=== PATIENT | male | born 1985 | race Caucasian/White ===

== ENCOUNTER 2019-07-25 18:18 | Emergency (ER) | payer BC, OTHER ==
[~2019-07-25] VITALS: Ht 178 cm; Wt 94.0 kg
[2019-07-25] MEDS ORDERED: ceFAZolin 2 GM IV Premixed 50 ML IV STA (18:30)
[2019-07-25] MEDS ORDERED: fentaNYL INJECTION 100 MCG/2 ML AMP IVP STA (18:30)
[2019-07-25] MEDS ORDERED: TETANUS,DIPTH,PERTUSS P/F (BOOSTRIX) 0.5 ML VIAL IM ONE (18:30)
--- NOTE | 2019-07-25 18:34 | ED Upper Extremity ---
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 Ywa BILLS (KACIE WRIGHT DO) Allergies and Home Medications Allergies Coded Allergies: No Known Drug Allergies (Unverified , 07/25/19) Home Medications Cephalexin 500 Mg Capsule, 500 MG PO QID Prescribed by: KACIE WRIGHT on 07/25/191905 Hydrocodone/Acetaminophen 1 Each Tablet, 1 EACH PO Q4-6 HOURS PRN for PAIN Prescribed by: KACIE WRIGHT on 07/25/191905 Patient Home Medication List Home Medication List Reviewed: Yes (KACIE WRIGHT DO) Review of Systems Constitutional: no symptoms reported Musculoskeletal: see HPI Skin: see HPI Psychiatric/Neurological: Denies Numbness, Denies Paresthesia (KACIE WRIGHT DO) Past Hfpinoh-Ceguyq-Hmqvfh Hx Past Med/Social Hx: Reviewed and Corrections made (KACIE WRIGHT DO) Patient Social History Alcohol Use: Regular Use Recreational Drug Use: No Smoking Status: Never a Smoker Type Used: Smokeless Tobacco Recent Foreign Travel: No Contact w/Someone Who Travel: No (KACIE WRIGHT DO) Immunizations Up To Date Tetanus Booster (TDap): Unknown (KACIE WRIGHT DO) Past Medical History Surgeries: Yes (RIGHT SHOUJLDER SURGERY) Orthopedic Respiratory: No Cardiac: Yes Hypertension Neurological: No Genitourinary: No Gastrointestinal: No Musculoskeletal: Yes (RIGHT SHOULDER SURGERY) Endocrine: No HEENT: No Cancer: No Psychosocial: No Integumentary: No Blood Disorders: No (KACIE WRIGHT DO) Physical Exam Vital Signs Vital Signs - First Documented 07/25/19 18:32 Temp 36.7 Pulse 89 Resp 18 B/P (MAP) 114/67 (83) Pulse Ox 98 O2 Delivery Room Air (GERDA CARABALLO) Vital Signs Capillary Refill : (ADRIANAKACIE John DIAL) Height, Weight, BMI Height: '" Weight: lbs. oz. kg; BMI Method: General Appearance: WD/WN, no apparent distress Wrist: Yes normal inspection Hand: Right (INDEX FINGER WITH LACERATION THROUGH DORSAL ASPECT OF PIP, WITH NEAR-AMPUTATION, ENTIRE PIP JOINT IS EXPOSED AND DIS-ARTICULATED, COMPLETE EXTENSOR TENDON INJURY, WITH FINGER IN FLEXION AT PIP JOINT. DISTAL SENSATION IS INTACT WITH GOOD CAPILLARY REFILL. 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 ) (KACIE WRIGHT DO) Procedures/Interventions REPAIR DONE BY SIM CARABALLO (ADRIANA,KACIE John DIAL) Wound Location: Upper Extremities (Index finger, laceration and partial amputation at PIP joint. ) Wound Length (cm): 4 Wound's Depth, Shape: into muscle, irregular, bone, tendon Wound Explored: clean Irrigated w/ Saline (ccs): 1500 Betadine Prep?: Yes Anesthesia: 1% Lidocaine Volume Anesthetic (ccs): 10 Wound Debrided: minimal Suture: Ethlion Suture Size: 4-0 Number of Sutures: 4 Sterile Dressing Applied?: Yes Progress Neurovasc status intact Right Index finger. Once verbal consent was given, using sterile technique a digital block to right index finger with 10 ml of 1% lidocaine. Would copiously irrigated. PIP joint reduced and finger in good alignment. Wound loosely closed with 4 simple sutures. Bulky sterile dressing and aluminum splint used to keep finger in anatomical alignment. Patient tolerated procedure well. Post procedure, brisk cap refill, neurovasc status intact. (GERDA CARABALLO) Progress/Results/Core Measures Results/Orders Lab Results Laboratory Tests Test 07/25/19 18:50 Range/Units White Blood Count 6.4 4.3-11.0 10^3/uL Red Blood Count 4.75 4.35-5.85 10^6/uL Hemoglobin 14.7 13.3-17.7 G/DL Hematocrit 42 40-54 % Mean Corpuscular Volume 87 80-99 FL Mean Corpuscular Hemoglobin 31 25-34 PG Mean Corpuscular Hemoglobin Concent 35 32-36 G/DL Red Cell Distribution Width 12.1 10.0-14.5 % Platelet Count 285 130-400 10^3/uL Mean Platelet Volume 9.4 7.4-10.4 FL Neutrophils (%) (Auto) 45 42-75 % Lymphocytes (%) (Auto) 42 12-44 % Monocytes (%) (Auto) 8 0-12 % Eosinophils (%) (Auto) 4 0-10 % Basophils (%) (Auto) 0 0-10 % Neutrophils # (Auto) 2.9 1.8-7.8 X 10^3 Lymphocytes # (Auto) 2.7 1.0-4.0 X 10^3 Monocytes # (Auto) 0.5 0.0-1.0 X 10^3 Eosinophils # (Auto) 0.3 0.0-0.3 10^3/uL Basophils # (Auto) 0.0 0.0-0.1 10^3/uL Prothrombin Time 14.3 12.2-14.7 SEC INR Comment 1.1 0.8-1.4 Activated Partial Thromboplast Time 26 24-35 SEC Sodium Level 139 135-145 MMOL/L Potassium Level 3.4 L 3.6-5.0 MMOL/L Chloride Level 104 98-107 MMOL/L Carbon Dioxide Level 23 21-32 MMOL/L Anion Gap 12 5-14 MMOL/L Blood Urea Nitrogen 15 7-18 MG/DL Creatinine 0.80 0.60-1.30 MG/DL Estimat Glomerular Filtration Rate > 60 BUN/Creatinine Ratio 19 Glucose Level 101 70-105 MG/DL Calcium Level 9.5 8.5-10.1 MG/DL Corrected Calcium 8.5-10.1 MG/DL Total Bilirubin 0.5 0.1-1.0 MG/DL Aspartate Amino Transf (AST/SGOT) 23 5-34 U/L Alanine Aminotransferase (ALT/SGPT) 26 0-55 U/L Alkaline Phosphatase 60 40-136 U/L Total Protein 7.3 6.4-8.2 GM/DL Albumin 4.7 H 3.2-4.5 GM/DL Serum Alcohol 11 H <10 MG/DL (GERDA CARABALLO) My Orders Orders - ILYA,GERDA MATERIAL SPECIALIST Lidocaine 1% Inj 20 Ml (Xylocaine 1% Inj (07/25/19 19:00) (ILYAGERDA) Medications Given in ED Current Medications Medications Dose Ordered Sig/Dieter Route Start Time Stop Time Status Last Admin Dose Admin Acetaminophen/ Hydrocodone Bitart 1 ea Q4H PRN PO 07/25/19 19:15 07/25/19 19:59 DC 07/25/19 19:47 1 EA Diphtheria/ Tetanus/Acell Pertussis 0.5 ml ONCE ONCE IM 07/25/19 18:30 07/25/19 18:34 DC 07/25/19 18:45 0.5 ML Lidocaine HCl 20 ml ONCE ONCE INJ 07/25/19 19:00 07/25/19 19:01 DC 07/25/19 19:36 4 ML (GERDA CARABALLO) Vital Signs/I&O 07/25/19 07/25/19 07/25/19 18:32 18:45 19:59 Temp 36.7 36.7 36.7 Pulse 89 87 Resp 18 18 B/P (MAP) 114/67 (83) 126/72 (83) Pulse Ox 98 98 O2 Delivery Room Air Room Air (ILYAGERDA) Diagnostic Imaging Comments XRAYS RIGHT INDEX FINGER--PER RADIOLOGIST REPORT AT 1900 3 views of the right hand were obtained. There is a table saw injury involving the 2nd digit. This appears to be located at the level of the PIP joint of the 2nd finger. There appears to be a bony defect involving the distal aspect of the proximal phalanx of the 2nd finger. There is acute ulnar angulation of the middle and distal phalanges in relation to the proximal phalanx with deep soft tissue injury at this level. No definite fracture of the middle or distal phalanx of the 2nd finger is seen. Metacarpals are intact. Carpus is unremarkable. IMPRESSION: Table saw injury to the 2nd digit at the level of the PIP joint with a bony defect and fractures of the distal aspect of the proximal phalanx, as described. Reviewed: Reviewed by Me (KACIE WRIGHT DO) Departure Communication (Admissions) 1829--SPOKE WITH DR. LEZAMA, ADVISES TRANSFER TO HAND SURGEON 1831--CALLED [facility], HAVE HAND SURGEON [employer]. WILL CALL THEM BACK 1837--CALLED [facility] [address] HAND SURGEON. 1844--SPOKE WITH DR. MITCHELL, ADVISES REDUCTION OF JOINT AND SKIN CLOSURE AND SPLINT. SEND PT HOME WITH RX FOR KEFLEX AND PAIN MEDICATION AND HAVE PT FOLLOW UP IN OFFICE TOMORROW--[phone] 1914--AT PT'S REQUEST, CALLED [facility] IN [place], SPOKE WITH ER--THEY DO NOT HAVE A HAND SURGEON ON STAFF. 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 Referrals: ANNAMARIA LUO MD (PCP) Primary Care Physician KEITH MCKINNEY (Family) Primary Care Physician Patient Instructions: Amputation of the Finger or Fingertip (DC), Diphtheria and Tetanus Toxoids, and Acellular Pertussis Vaccine, SPLINT CARE, Tendon Laceration (DC) Add. Discharge Instructions: LEAVE DRESSING AND SPLINT IN PLACE AT ALL TIMES KEEP AREA CLEAN AND DRY ELEVATE HAND MUCH POSSIBLE IF WOUND BLEEDS THROUGH DRESSING, APPLY PRESSURE, ICE AT 20 MINUTE INTERVALS AND ELEVATE, AND APPLY ADDITIONAL DRESSING CALL DR. MITCHELL'S OFFICE IN THE MORNING TO ARRANGE FOLLOW UP APPOINTMENT--[phone] TAKE ANTIBIOTICS PRESCRIBED TAKE PAIN MEDICATION PRESCRIBED NEEDED FOR PAIN NOTHING TO EAT OR DRINK AFTER MIDNIGHT TONIGHT All discharge instructions reviewed with patient and/or family. Voiced understanding. Scripts Hydrocodone/Acetaminophen (Hydrocodone-Acetamin 5-325 mg) 1 Each Tablet 1 EACH PO Q4-6 HOURS PRN for PAIN, #20 TAB Prov: KACIE WRIGHT DO 07/25/19 Cephalexin (Keflex) 500 Mg Capsule 500 MG PO QID, #40 CAP Prov: KACIE WRIGHT DO 07/25/19 KACIE WRIGHT DO July 25, 2019 18:34 GERDA CARABALLO July 25, 2019 19:57
--- NOTE | 2019-07-25 18:54 | Diagnostic Imaging Report ---
INDICATION: Table saw injury to the right hand. Time of exam: 6:41 PM 3 views of the right hand were obtained. There is a table saw injury involving the 2nd digit. This appears to be located at the level of the PIP joint of the 2nd finger. There appears to be a bony defect involving the distal aspect of the proximal phalanx of the 2nd finger. There is acute ulnar angulation of the middle and distal phalanges in relation to the proximal phalanx with deep soft tissue injury at this level. No definite fracture of the middle or distal phalanx of the 2nd finger is seen. Metacarpals are intact. Carpus is unremarkable. IMPRESSION: Table saw injury to the 2nd digit at the level of the PIP joint with a bony defect and fractures of the distal aspect of the proximal phalanx, as described. Dictated by: Dictated on workstation # [id number]
[2019-07-25] MEDS ORDERED: LIDOCAINE 1% INJ 20 ML 20 ML VIAL INJ ONE (19:00)
[2019-07-25 19:04] LABS: BASOPHILS % (AUTO) 0 % (0-10); EOSINOPHILS # (AUTO) 0.3 10^3/uL (0.0-0.3); EOSINOPHILS % (AUTO) 4 % (0-10); HEMATOCRIT 42 % (40-54); HEMOGLOBIN 14.7 G/DL (13.3-17.7); LYMPHOCYTES # (AUTO) 2.7 X 10^3 (1.0-4.0); LYMPHOCYTES % (AUTO) 42 % (12-44); MEAN CORPUSCULAR HEMOGLOBIN 31 PG (25-34); MEAN CORPUSCULAR HGB CONC 35 G/DL (32-36); MEAN CORPUSCULAR VOLUME 87 FL (80-99); MEAN PLATELET VOLUME 9.4 FL (7.4-10.4); MONOCYTES # (AUTO) 0.5 X 10^3 (0.0-1.0); MONOCYTES % (AUTO) 8 % (0-12); NEUTROPHILS # (AUTO) 2.9 X 10^3 (1.8-7.8); NEUTROPHILS % (AUTO) 45 % (42-75); PLATELET COUNT 285 10^3/uL (130-400); RED CELL DISTRIBUTION WIDTH 12.1 % (10.0-14.5); WHITE BLOOD COUNT 6.4 10^3/uL (4.3-11.0)
[2019-07-25] MEDS ORDERED: RX-CEPHALEXIN (KEFLEX) 250 MG CAP PPK#4 PO STA (19:06)
[2019-07-25] MEDS ORDERED: HYDR-83 PO (19:06)
[2019-07-25] MEDS ORDERED: CEPH-507 PO (19:06)
[2019-07-25 19:15] LABS: ALBUMIN 4.7 GM/DL (3.2-4.5); CHLORIDE 104 MMOL/L (98-107); POTASSIUM 3.4 MMOL/L (3.6-5.0); SODIUM 139 MMOL/L (135-145)
[2019-07-25] MEDS ORDERED: RX-HYDROCODONE/APAP 5/325 MG #4 TAB PK PO PRN (19:15)
[2019-07-25 19:16] LABS: CALCIUM 9.5 MG/DL (8.5-10.1)
[2019-07-25 19:17] LABS: GLUCOSE 101 MG/DL (70-105); TOTAL PROTEIN 7.3 GM/DL (6.4-8.2)
[2019-07-25 19:18] LABS: CARBON DIOXIDE 23 MMOL/L (21-32)
[2019-07-25 19:19] LABS: BILIRUBIN,TOTAL 0.5 MG/DL (0.1-1.0)
[2019-07-25 19:20] LABS: INR 1.1 (0.8-1.4); PROTHROMBIN TIME PATIENT 14.3 SEC (12.2-14.7)
[2019-07-25 19:21] LABS: ALKALINE PHOSPHATASE 60 U/L (40-136); GFR ESTIMATED > 60
[2019-07-25 19:22] LABS: BUN/CREATININE RATIO 19
[2019-07-25 19:24] LABS: ALANINE AMINOTRANSFERASE 26 U/L (0-55)
[2019-07-25 19:59] VITALS: BP 126/72
--- OUTSIDE RECORDS SUMMARY | 2019-07-25 20:38 | XMS REPORT | CCD ---
Author Author Simeon Ventura Organization Nevin Wright MD, [facility] Address [address] [place] [address] Phone Care Team Providers Care Elevator Examiner And Adjuster Name Role Phone PP Unavailable CCM Unavailable Summary Purpose Interface Exchange Insurance Providers Payer name Policy type / Coverage type Covered libertarian ID Effective Begin Date Effective End Date [id number] Un known Family history Father Diagnosis Age At Onset Asthma Unknown Hypertension Unknown Runs in the family Diagnosis Age At Onset Thyroid Unknown Skin cancer Unknown Cancer Unknown Hypertension Unknown Arthritis Unknown Stroke Unknown Coronary Artery Disease Unknown Mother Diagnosis Age At Onset Thyroid Unknown Social History Social History Element Codes Description Effective Dates Number of children Unknown 1 Call - son 09/28/2016 Marital status Unknown M nae Mcdonald 06/04/2016 Living arrangements Unknown House 06/04/2016 Education level Unknown College Graduate 06/04/[address]: 006834147 Never smoker Quit chewing 6 months ago 06/04/2016 Allergies, Adverse Reactions, Alerts Substance Reaction Codes Entered Date Inactivated Date Status * NO KNOWN FOOD IJEOMA RGIES Unknown 06/04/2016 No Inactive Date Active * NO KNOWN DRUG IJEOMA RGIES Unknown 06/04/2016 No Inactive Date Active Past Medical History Illness Codes Condition Status Onset Date Resolved Date Impacted cerumen, bi lateral ICD-9: 380.4 ICD-10: H61.23 Active 08/11/2018 Unknown Essential (primary) hypertension ICD-9: 401.9 ICD-10: I10 Active 09/28/2016 Unknown Encounter for genera l adult medical examination with abnormal findings ICD-9: V70.0 ICD-10: Z00.01 Active 12/20/2017 Unknown Hypertension Unknown Active 09/28/2016 Unknow n Elevated blood-press ure reading, without diagnosis of hypertension ICD-9: 796.2 ICD-10: R03.0 Active 06/04/2016 Unknown Exercise induced bro nchospasm ICD-9: 493.81 ICD-10: J45.990 Active 06/04/2016 Unknown Problems Condition Codes Effectiv e Dates Condition Status Impacted cerumen, bi lateral ICD-9: 380.4 ICD-10: H61.23 08/11/2018 Active Essential (primary) hypertension ICD-9: 401.9 ICD-10: I10 09/28/2016 Active Encounter for genera l adult medical examination with abnormal findings ICD-9: V70.0 ICD-10: Z00.01 12/20/2017 Active Hypertension Unknown 09/28/2016 Active Elevated blood-press ure reading, without diagnosis of hypertension ICD-9: 796.2 ICD-10: R03.0 06/04/2016 Active Exercise induced bro nchospasm ICD-9: 493.81 ICD-10: J45.990 06/04/2016 Active Medications Medication Codes Instruc tions Start Date Stop Date Sta tus Fill Instructions lisinopril 20 mg tablet RxNorm: 326491 1 Tablet(s) PO daily 08/11/2018 08/05/2019 Active Lexapro 10 mg tablet RxNorm: 285745 1 Tablet(s) PO daily 05/04/2018 04/28/2019 Active Lexapro 10 mg tablet RxNorm: 649326 1 Tablet(s) PO daily 05/04/2018 06/02/2018 Inactive Lexapro 5 mg tablet RxNorm: 678383 1 Tablet(s) PO QPM 01/10/2018 07/08/2018 Inactive Lexapro 5 mg tablet RxNorm: 251554 1 Tablet(s) PO QPM 12/20/2017 12/19/2017 Inactive lisinopril 10 mg tablet RxNorm: 815370 1 Tablet(s) PO daily 12/20/2017 08/10/2018 Inactive Lexapro 5 mg tablet RxNorm: 654674 1 Tablet(s) PO QPM 12/20/2017 01/09/2018 Inactive lisinopril 5 mg tablet RxNorm: 383880 1 Tablet(s) PO daily 09/27/2017 12/19/2017 Inactive lisinopril 5 mg tablet RxNorm: 744202 1 Tablet(s) PO daily 01/13/2017 09/26/2017 Inactive lisinopril 5 mg tablet RxNorm: 314722 1 Tablet(s) PO daily 12/29/2016 01/12/2017 Inactive lisinopril 5 mg tablet RxNorm: 772226 1 Tablet(s) PO daily 10/27/2016 12/28/2016 Inactive lisinopril 5 mg tablet RxNorm: 118569 1 Tablet(s) PO daily 09/28/2016 10/26/2016 Inactive ProAir HFA 90 mcg/ac tuation aerosol inhaler RxNorm: 204188 1-2 Puff(s) INH Q4 VT N 06/04/2016 07/03/2016 In active ProAir HFA 90 mcg/ac tuation aerosol inhaler RxNorm: 533328 1-2 Puff(s) INH Q4 VT N 06/04/2016 06/03/2016 In active Lexapro 10 mg tablet RxNorm: 045257 1 Tablet(s) PO daily No Start Date 05/03/2018 Inactive Medication Administered No Medication Administered data Immunizations No Immunization data Assessments Condition Codes Effectiv e Dates Impacted cerumen, bilateral ICD-10: H61.23 ICD-9: 380.4 08/18/2018 Essential (primary) hypertension ICD -10: I10 ICD-9: 401.9 08/11/2018 Encounter for general adult medical exam ination with abnormal findings ICD-10: Z00.01 ICD-9: V70.0 12/20/2017 Elevated blood-pressure reading, without diagnosis of hypertension ICD-10: R03.0 ICD-9: 796.2 08/27/2016 Exercise induced bronchospasm ICD-10 : J45.990 ICD-9: 493.81 06/04/2016 Reason For Visit Reason For Visit Effective Dates Notes earache 08/18/2018 hypertension 08/11/2018 hypertension 12/20/2017 hypertension 07/23/2017 hypertension 12/29/2016 hypertension 10/27/2016 hypertension 09/28/2016 hypertension 06/04/2016 when running Results Observation Observation Code Item Item Code Result Date Lipid Ord30 CHOL 165 mg/dL 12/20/2017 Lipid Ord30 HDL 59.0 mg/dl 12/20/2017 Lipid Ord30 TRIG 66 mg/dL 12/20/2017 Lipid Ord30 LDL 93 mg/dL 12/20/2017 Lipid Ord30 C/HDL 2.8 Ratio 12/20/2017 Cbc With Differential Ord2 WBC 4.58 K/ul 12/20/2017 Cbc With Differential Ord2 RBC 5.16 M/ul 12/20/2017 Cbc With Differential Ord2 HGB 16.0 g/dl 12/20/2017 Cbc With Differential Ord2 HCT 45.8 % 12/20/2017 Cbc With Differential Ord2 Neut% 51.8 % 12/20/2017 Cbc With Differential Ord2 MCV 88.8 fl 12/20/2017 Cbc With Differential Ord2 Lymph% 37.1 % 12/20/2017 Cbc With Differential Ord2 MCH 31.0 pg 12/20/2017 Cbc With Differential Ord2 [place]% 9.4 % 12/20/2017 Cbc With Differential Ord2 MCHC 34.9 pg 12/20/2017 Cbc With Differential Ord2 Eos% 1.5 % 12/20/2017 Cbc With Differential Ord2 PLT 280 K/ul 12/20/2017 Cbc With Differential Ord2 Baso% 0.2 % 12/20/2017 Cbc With Differential Ord2 RDW 13.3 % 12/20/2017 Cbc With Differential Ord2 Neut ABS# 2.37 K/ul 12/20/2017 Cbc With Differential Ord2 Lymph ABS# 1.70 K/ul 12/20/2017 Cbc With Differential Ord2 [place] ABS# 0.4 K/ul 12/20/2017 Cbc With Differential Ord2 Eos ABS# 0.1 K/ul 12/20/2017 Cbc With Differential Ord2 Baso ABS# 0.0 K/ul 12/20/2017 Comp Metabolic Nwh089 NA 139 mEq/L 12/20/2017 Comp Metabolic Dvz462 K 4.0 mEq/L 12/20/2017 Comp Metabolic Gcc338 CL 102 mEq/L 12/20/2017 Comp Metabolic Ecl931 CO2 26.0 mEq/L 12/20/2017 Comp Metabolic Jcs783 AN ION GAP 15 12/20/2017 Comp Metabolic Eyd577 GL UCOSE 97 mg/dL 12/20/2017 Comp Metabolic Noi324 Cr eat 0.8 mg/dL 12/20/2017 Comp Metabolic Jcg471 eG FR 122 ml/min/1.73m2 12/06 Comp Metabolic Ezh870 BUN 13 mg/dL 12/20/2017 Comp Metabolic Uyj435 B/ C Ratio 16.5 Ratio 12/20/2017 Comp Metabolic Tgs972 CA LCIUM 10.2 mg/dL 12/20/2017 Comp Metabolic Dsp440 AL K PHOS 63 U/L 12/20/2017 Comp Metabolic Wgb698 T(SGOT) 17 U/L 12/20/2017 Comp Metabolic Htp141 AL T(SGPT) 23 U/L 12/20/2017 Comp Metabolic Jhh302 BI LI T 0.6 mg/dL 12/20/2017 Comp Metabolic Tfm448 AL BUMIN 5.0 g/dL 12/20/2017 Comp Metabolic Gax853 TP RO 7.5 g/dL 12/20/2017 Comp Metabolic Rvi852 GL OB 2.5 g/dL 12/20/2017 Comp Metabolic Juc940 A/ G Ratio 2.0 Ratio 12/20/2017 Comp Metabolic Qpz132 Os mo 278 mOsmo 12/20/2017 Tsh Ord6 TSH (3rd IS) 1.52 uIU/mL 12/20/2017 Tsh Ord6 hTSH II 1.07 uIU/mL 06/05/2016 Comp Metabolic Cmq816 NA 139 mEq/L 06/05/2016 Comp Metabolic Hub040 K 4.1 mEq/L 06/05/2016 Comp Metabolic Wpu218 CL 103 mEq/L 06/05/2016 Comp Metabolic Pch063 CO2 26.0 mEq/L 06/05/2016 Comp Metabolic Exx965 AN ION GAP 14 06/05/2016 Comp Metabolic Czd766 GL UCOSE 88 mg/dL 06/05/2016 Comp Metabolic Fae126 Cr eat 0.8 mg/dL 06/05/2016 Comp Metabolic Mod096 eG FR 127 ml/min/1.73m2 05/08 Comp Metabolic Fhg233 BUN 14 mg/dL 06/05/2016 Comp Metabolic Zje468 B/ C Ratio 18.2 Ratio 06/05/2016 Comp Metabolic Fmq548 CA LCIUM 10.0 mg/dL 06/05/2016 Comp Metabolic Gjh246 AL K PHOS 64 U/L 06/05/2016 Comp Metabolic Bla840 T(SGOT) 20 U/L 06/05/2016 Comp Metabolic Fok498 AL T(SGPT) 29 U/L 06/05/2016 Comp Metabolic Ofu081 BI LI T 0.7 mg/dL 06/05/2016 Comp Metabolic Otg314 AL BUMIN 4.8 g/dL 06/05/2016 Comp Metabolic Rxt450 TP RO 7.3 g/dL 06/05/2016 Comp Metabolic Vwb886 GL OB 2.5 g/dL 06/05/2016 Comp Metabolic Kxf000 A/ G Ratio 1.9 Ratio 06/05/2016 Comp Metabolic Toy326 Os mo 277 mOsmo 06/05/2016 Cbc With Differential Ord2 WBC 6.43 K/ul 06/05/2016 Cbc With Differential Ord2 RBC 4.98 M/ul 06/05/2016 Cbc With Differential Ord2 HGB 15.7 g/dl 06/05/2016 Cbc With Differential Ord2 HCT 44.3 % 06/05/2016 Cbc With Differential Ord2 Neut% 63.3 % 06/05/2016 Cbc With Differential Ord2 MCV 89.0 fl 06/05/2016 Cbc With Differential Ord2 Lymph% 25.2 % 06/05/2016 Cbc With Differential Ord2 MCH 31.5 pg 06/05/2016 Cbc With Differential Ord2 [place]% 9.5 % 06/05/2016 Cbc With Differential Ord2 MCHC 35.4 pg 06/05/2016 Cbc With Differential Ord2 Eos% 1.7 % 06/05/2016 Cbc With Differential Ord2 PLT 296 K/ul 06/05/2016 Cbc With Differential Ord2 Baso% 0.3 % 06/05/2016 Cbc With Differential Ord2 RDW 12.7 % 06/05/2016 Cbc With Differential Ord2 Neut ABS# 4.07 K/ul 06/05/2016 Cbc With Differential Ord2 Lymph ABS# 1.62 K/ul 06/05/2016 Cbc With Differential Ord2 [place] ABS# 0.6 K/ul 06/05/2016 Cbc With Differential Ord2 Eos ABS# 0.1 K/ul 06/05/2016 Cbc With Differential Ord2 Baso ABS# 0.0 K/ul 06/05/2016 Lipid Ord30 CHOL 132 mg/dL 06/05/2016 Lipid Ord30 HDL 44.0 mg/dl 06/05/2016 Lipid Ord30 TRIG 52 mg/dL 06/05/2016 Lipid Ord30 LDL 78 mg/dL 06/05/2016 Lipid Ord30 C/HDL 3.0 Ratio 06/05/2016 Review of Systems System Result Effective Dates Constitutional No recent illness 08/11/2018 Constitutional No night sweats 08/11/2018 Constitutional No chills 08/11/2018 Constitutional No fatigue 08/11/2018 Constitutional No fever 08/11/2018 Constitutional No insomnia 08/11/2018 Constitutional No malaise 08/11/2018 Eyes No eye pain 019 Eyes No vision change Ears/Nose/Throat/Neck No dizziness 08/11/2018 Ears/Nose/Throat/Neck No headache 08/11/2018 Cardiovascular No chest pain/pressure 08/11/2018 Cardiovascular No dyspnea 08/11/2018 Cardiovascular No edema 08/11/2018 Cardiovascular No palpitations 08/11/2018 Respiratory No chest congestion 08/11/2018 Respiratory No chest tightness 08/11/2018 Respiratory No cigarette smoking 08/11/2018 Respiratory No cough 08/2018 Gastrointestinal No abdominal pain 08/11/2018 Gastrointestinal No nausea 08/11/2018 Gastrointestinal No vomiting 08/11/2018 Musculoskeletal No stiffness 08/11/2018 Musculoskeletal No swelling 08/11/2018 Musculoskeletal No arthralgia(s) 08/11/2018 Neurologic No alteration of consciousness 08/11/2018 Neurologic No memory loss 08/11/2018 Neurologic No mental status change 08/11/2018 Psychiatric anxiety 08/2018 Psychiatric No depression 08/11/2018 Constitutional No recent illness 12/20/2017 Constitutional No anorexia 12/20/2017 Constitutional No night sweats 12/20/2017 Constitutional No chills 12/20/2017 Constitutional No diaphoresis 12/20/2017 Constitutional No fatigue 12/20/2017 Constitutional No fever 12/20/2017 Constitutional No insomnia 12/20/2017 Constitutional No malaise 12/20/2017 Constitutional No weight loss 12/20/2017 Constitutional No weight gain 12/20/2017 Constitutional No obesity 12/20/2017 Eyes No eye pain 018 Eyes No vision change Ears/Nose/Throat/Neck No dizziness 12/20/2017 Ears/Nose/Throat/Neck No headache 12/20/2017 Cardiovascular No chest pain/pressure 12/20/2017 Cardiovascular No dyspnea 12/20/2017 Cardiovascular No edema 12/20/2017 Cardiovascular No palpitations 12/20/2017 Respiratory No chest congestion 12/20/2017 Respiratory No chest tightness 12/20/2017 Respiratory No cigarette smoking 12/20/2017 Respiratory No cough Gastrointestinal No abdominal pain 12/20/2017 Gastrointestinal No nausea 12/20/2017 Gastrointestinal No vomiting 12/20/2017 Genitourinary/Nephrology No anuria/oliguri a 12/20/2017 Genitourinary/Nephrology No dysuria 12/20/2017 Musculoskeletal No stiffness 12/20/2017 Musculoskeletal No swelling 12/20/2017 Musculoskeletal No arthralgia(s) 12/20/2017 Dermatologic No rash Dermatologic No sores Neurologic No alteration of consciousness 12/20/2017 Neurologic No memory loss 12/20/2017 Neurologic No mental status change 12/20/2017 Psychiatric anxiety 12/06 Psychiatric No depression 12/20/2017 Hematologic/Lymphatic No abnormal ec chymoses 12/20/2017 Hematologic/Lymphatic No abnormal bl eeding and bruising 12/20/2017 Endocrine No dry or coarse skin 12/20/2017 Constitutional No recent illness 07/23/2017 Constitutional No anorexia 07/23/2017 Constitutional No night sweats 07/23/2017 Constitutional No chills 07/23/2017 Constitutional No diaphoresis 07/23/2017 Constitutional No fatigue 07/23/2017 Constitutional No fever 07/23/2017 Constitutional No insomnia 07/23/2017 Constitutional No malaise 07/23/2017 Constitutional No weight loss 07/23/2017 Constitutional No weight gain 07/23/2017 Constitutional No obesity 07/23/2017 Eyes No eye pain 018 Eyes No vision change Ears/Nose/Throat/Neck No dizziness 07/23/2017 Ears/Nose/Throat/Neck No headache 07/23/2017 Cardiovascular No chest pain/pressure 07/23/2017 Cardiovascular No dyspnea 07/23/2017 Cardiovascular No edema 07/23/2017 Cardiovascular No palpitations 07/23/2017 Respiratory No chest congestion 07/23/2017 Respiratory No chest tightness 07/23/2017 Respiratory No cigarette smoking 07/23/2017 Respiratory No cough Gastrointestinal No abdominal pain 07/23/2017 Gastrointestinal No nausea 07/23/2017 Gastrointestinal No vomiting 07/23/2017 Genitourinary/Nephrology No anuria/oliguri a 07/23/2017 Genitourinary/Nephrology No dysuria 07/23/2017 Musculoskeletal No stiffness 07/23/2017 Musculoskeletal No swelling 07/23/2017 Musculoskeletal No arthralgia(s) 07/23/2017 Dermatologic No rash Dermatologic No sores Neurologic No alteration of consciousness 07/23/2017 Neurologic No memory loss 07/23/2017 Neurologic No mental status change 07/23/2017 Psychiatric anxiety 07/06 Psychiatric No depression 07/23/2017 Hematologic/Lymphatic No abnormal ec chymoses 07/23/2017 Hematologic/Lymphatic No abnormal bl eeding and bruising 07/23/2017 Constitutional No recent illness 12/29/2016 Constitutional No anorexia 12/29/2016 Constitutional No night sweats 12/29/2016 Constitutional No chills 12/29/2016 Constitutional No diaphoresis 12/29/2016 Constitutional No fatigue 12/29/2016 Constitutional No fever 12/29/2016 Constitutional No insomnia 12/29/2016 Constitutional No malaise 12/29/2016 Constitutional No weight loss 12/29/2016 Constitutional No weight gain 12/29/2016 Constitutional No obesity 12/29/2016 Eyes No eye pain 017 Eyes No vision change Ears/Nose/Throat/Neck No dizziness 12/29/2016 Ears/Nose/Throat/Neck No headache 12/29/2016 Cardiovascular No chest pain/pressure 12/29/2016 Cardiovascular No dyspnea 12/29/2016 Cardiovascular No edema 12/29/2016 Cardiovascular No palpitations 12/29/2016 Respiratory No chest congestion 12/29/2016 Respiratory No chest tightness 12/29/2016 Respiratory No cigarette smoking 12/29/2016 Respiratory No cough Gastrointestinal No abdominal pain 12/29/2016 Gastrointestinal No nausea 12/29/2016 Gastrointestinal No vomiting 12/29/2016 Genitourinary/Nephrology No anuria/oliguri a 12/29/2016 Genitourinary/Nephrology No dysuria 12/29/2016 Musculoskeletal No stiffness 12/29/2016 Musculoskeletal No swelling 12/29/2016 Musculoskeletal No arthralgia(s) 12/29/2016 Dermatologic No rash Dermatologic No sores Neurologic No alteration of consciousness 12/29/2016 Neurologic No memory loss 12/29/2016 Neurologic No mental status change 12/29/2016 Psychiatric anxiety 12/07 Psychiatric No depression 12/29/2016 Hematologic/Lymphatic No abnormal ec chymoses 12/29/2016 Hematologic/Lymphatic No abnormal bl eeding and bruising 12/29/2016 Constitutional No recent illness 10/27/2016 Constitutional No anorexia 10/27/2016 Constitutional No night sweats 10/27/2016 Constitutional No chills 10/27/2016 Constitutional No diaphoresis 10/27/2016 Constitutional No fatigue 10/27/2016 Constitutional No fever 10/27/2016 Constitutional No insomnia 10/27/2016 Constitutional No malaise 10/27/2016 Constitutional No weight loss 10/27/2016 Constitutional No weight gain 10/27/2016 Constitutional No obesity 10/27/2016 Eyes No eye pain 017 Eyes No vision change Ears/Nose/Throat/Neck No dizziness 10/27/2016 Ears/Nose/Throat/Neck No headache 10/27/2016 Cardiovascular No chest pain/pressure 10/27/2016 Cardiovascular No dyspnea 10/27/2016 Cardiovascular No edema 10/27/2016 Cardiovascular No palpitations 10/27/2016 Respiratory No chest congestion 10/27/2016 Respiratory No chest tightness 10/27/2016 Respiratory No cigarette smoking 10/27/2016 Respiratory No cough Gastrointestinal No abdominal pain 10/27/2016 Gastrointestinal No nausea 10/27/2016 Gastrointestinal No vomiting 10/27/2016 Genitourinary/Nephrology No anuria/oliguri a 10/27/2016 Genitourinary/Nephrology No dysuria 10/27/2016 Musculoskeletal No stiffness 10/27/2016 Musculoskeletal No swelling 10/27/2016 Musculoskeletal No arthralgia(s) 10/27/2016 Dermatologic No rash Dermatologic No sores Neurologic No alteration of consciousness 10/27/2016 Neurologic No memory loss 10/27/2016 Neurologic No mental status change 10/27/2016 Psychiatric No anxiety 0 10/27/2016 Psychiatric No depression 10/27/2016 Hematologic/Lymphatic No abnormal ec chymoses 10/27/2016 Hematologic/Lymphatic No abnormal bl eeding and bruising 10/27/2016 Constitutional No recent illness 09/28/2016 Constitutional No anorexia 09/28/2016 Constitutional No night sweats 09/28/2016 Constitutional No chills 09/28/2016 Constitutional No diaphoresis 09/28/2016 Constitutional No fatigue 09/28/2016 Constitutional No fever 09/28/2016 Constitutional No insomnia 09/28/2016 Constitutional No malaise 09/28/2016 Constitutional No weight loss 09/28/2016 Constitutional No weight gain 09/28/2016 Constitutional No obesity 09/28/2016 Eyes No eye pain 017 Eyes No vision change Ears/Nose/Throat/Neck No dizziness 09/28/2016 Ears/Nose/Throat/Neck No headache 09/28/2016 Respiratory No chest congestion 09/28/2016 Respiratory No chest tightness 09/28/2016 Respiratory No cigarette smoking 09/28/2016 Respiratory No cough Gastrointestinal No abdominal pain 09/28/2016 Gastrointestinal No nausea 09/28/2016 Gastrointestinal No vomiting 09/28/2016 Genitourinary/Nephrology No anuria/oliguri a 09/28/2016 Genitourinary/Nephrology No dysuria 09/28/2016 Musculoskeletal No stiffness 09/28/2016 Musculoskeletal No swelling 09/28/2016 Musculoskeletal No arthralgia(s) 09/28/2016 Dermatologic No rash Dermatologic No sores Neurologic No alteration of consciousness 09/28/2016 Neurologic No memory loss 09/28/2016 Neurologic No mental status change 09/28/2016 Psychiatric No anxiety 0 09/28/2016 Psychiatric No depression 09/28/2016 Hematologic/Lymphatic No abnormal ec chymoses 09/28/2016 Hematologic/Lymphatic No abnormal bl eeding and bruising 09/28/2016 Cardiovascular No chest pain/pressure 09/28/2016 Cardiovascular No dyspnea 09/28/2016 Cardiovascular No edema 09/28/2016 Cardiovascular No palpitations 09/28/2016 Constitutional No recent illness 06/04/2016 Constitutional No anorexia 06/04/2016 Constitutional No night sweats 06/04/2016 Constitutional No chills 06/04/2016 Constitutional No diaphoresis 06/04/2016 Constitutional No fatigue 06/04/2016 Constitutional No fever 06/04/2016 Constitutional No insomnia 06/04/2016 Constitutional No malaise 06/04/2016 Constitutional No weight loss 06/04/2016 Constitutional No weight gain 06/04/2016 Constitutional No obesity 06/04/2016 Eyes No eye pain 017 Eyes No vision change Ears/Nose/Throat/Neck No dizziness 06/04/2016 Ears/Nose/Throat/Neck No headache 06/04/2016 Cardiovascular chest pain/pressure 06/04/2016 Cardiovascular dyspnea 0 06/04/2016 Cardiovascular palpitations 06/04/2016 Respiratory No cigarette smoking 06/04/2016 Respiratory No cough Respiratory No chest tightness 06/04/2016 Respiratory No chest congestion 06/04/2016 Gastrointestinal No abdominal pain 06/04/2016 Gastrointestinal No nausea 06/04/2016 Gastrointestinal No vomiting 06/04/2016 Genitourinary/Nephrology No dysuria 06/04/2016 Genitourinary/Nephrology No anuria/oliguri a 06/04/2016 Musculoskeletal No stiffness 06/04/2016 Musculoskeletal No swelling 06/04/2016 Musculoskeletal No arthralgia(s) 06/04/2016 Dermatologic No rash Dermatologic No sores Psychiatric No anxiety 0 06/04/2016 Psychiatric No depression 06/04/2016 Neurologic No alteration of consciousness 06/04/2016 Neurologic No memory loss 06/04/2016 Neurologic No mental status change 06/04/2016 Hematologic/Lymphatic No abnormal ec chymoses 06/04/2016 Hematologic/Lymphatic No abnormal bl eeding and bruising 06/04/2016 Physical Exam Exam Name System Name It em Name Status Result Effective Dates Notes Full Exam - General 1994 Constitutional general appearance Development: well developed 08/18/2018 None Full Exam - General 1994 Constitutional general appearance Development: appears stated age 0608/18/2018 None Full Exam - General 1994 Ears/Nose/Throat otoscopic exam External auditory canal: complete cerumen impaction 08/18/2018 removed with water pick Full Exam - General 1994 Ears/Nose/Throat otoscopic exam External auditory canal: minimal cerumen 08/18/2018 None Full Exam - General 1994 Constitutional general appearance Development: well developed 08/11/2018 None Full Exam - General 1994 Constitutional general appearance Development: appears stated age 0608/11/2018 None Full Exam - General 1994 Eyes conjunctiva/eyelids Overall: conjunctiva clear 08/11/2018 None Full Exam - General 1994 Eyes conjunctiva/eyelids Overall: cornea clear 08/11/2018 None Full Exam - General 1994 Eyes conjunctiva/eyelids Overall: eyelids normal 08/11/2018 None Full Exam - General 1994 Eyes pupils and irises Overall: pupils equal, round, reactive to light and accomodation 08/11/2018 None Full Exam - General 1994 Ears/Nose/Throat lips/teeth/gingiva Overall: benign lips 08/11/2018 None Full Exam - General 1995 Ears/Nose/Throat lips/teeth/gingiva Overall: normal dentition 08/11/2018 None Full Exam - General 1994 Ears/Nose/Throat lips/teeth/gingiva Overall: benign gingiva 08/11/2018 None Full Exam - General 1994 Ears/Nose/Throat lips/teeth/gingiva Overall: no masses 08/11/2018 None Full Exam - General 1994 Ears/Nose/Throat oral cavity/pharynx/larynx Overall: oral mucosa clear 08/11/2018 None Full Exam - General 1994 Respiratory auscultation Overall: breath sounds clear bilaterally 08/11/2018 None Full Exam - General 1994 Respiratory respiratory effort/rhythm Overall: no retractions 08/11/2018 None Full Exam - General 1994 Respiratory respiratory effort/rhythm Overall: normal rate 08/11/2018 None Full Exam - General 1994 Cardiovascular auscultation of heart Overall: regular rate 08/11/2018 None Full Exam - General 1994 Cardiovascular auscultation of heart Overall: normal heart sounds 08/11/2018 None Full Exam - General 1994 Cardiovascular auscultation of heart Overall: no murmurs 08/11/2018 None Full Exam - General 1994 Musculoskeletal head and neck Overall: head atraumatic 08/11/2018 None Full Exam - General 1994 Psychiatric orientation/consciousness Overall: oriented to person, place and time 08/11/2018 None Full Exam - General 1994 Psychiatric mood and affect Overall: normal mood and affect 08/11/2018 None Full Exam - General 1994 Psychiatric speech Overall: normal quality, no aphasia 08/11/2018 None Full Exam - General 1994 Psychiatric judgment/insight Overall: judgment and insight intact 08/11/2018 None Full Exam - General 1994 Neurologic cranial nerves Overall: crainial nerves 2 - 12 grossly intact 08/11/2018 None Full Exam - General 1994 Ears/Nose/Throat otoscopic exam External auditory canal: partial cerumen occlusion 08/11/2018 removed with ear curette Full Exam - General 1994 Ears/Nose/Throat otoscopic exam External auditory canal: complete cerumen impaction 08/11/2018 None Full Exam - General 1994 Constitutional general appearance Development: well developed 12/20/2017 None Full Exam - General 1994 Constitutional general appearance Development: appears stated age 1012/20/2017 None Full Exam - General 1994 Eyes conjunctiva/eyelids Overall: conjunctiva clear 12/20/2017 None Full Exam - General 1994 Eyes conjunctiva/eyelids Overall: cornea clear 12/20/2017 None Full Exam - General 1994 Eyes conjunctiva/eyelids Overall: eyelids normal 12/20/2017 None Full Exam - General 1994 Eyes pupils and irises Overall: pupils equal, round, reactive to light and accomodation 12/20/2017 None Full Exam - General 1994 Ears/Nose/Throat lips/teeth/gingiva Overall: benign lips 12/20/2017 None Full Exam - General 1994 Ears/Nose/Throat lips/teeth/gingiva Overall: normal dentition 12/20/2017 None Full Exam - General 1994 Ears/Nose/Throat lips/teeth/gingiva Overall: benign gingiva 12/20/2017 None Full Exam - General 1994 Ears/Nose/Throat lips/teeth/gingiva Overall: no masses 12/20/2017 None Full Exam - General 1994 Ears/Nose/Throat oral cavity/pharynx/larynx Overall: oral mucosa clear 12/20/2017 None Full Exam - General 1994 Neck thyroid Overall: normal size None Full Exam - General 1994 Neck thyroid Overall: normal consistency 12/20/2017 None Full Exam - General 1994 Neck thyroid Overall: nontender 12/20 None Full Exam - General 1994 Respiratory auscultation Overall: breath sounds clear bilaterally 12/20/2017 None Full Exam - General 1994 Respiratory respiratory effort/rhythm Overall: no retractions 12/20/2017 None Full Exam - General 1994 Respiratory respiratory effort/rhythm Overall: normal rate 12/20/2017 None Full Exam - General 1994 Cardiovascular auscultation of heart Overall: regular rate 12/20/2017 None Full Exam - General 1994 Cardiovascular auscultation of heart Overall: normal heart sounds 12/20/2017 None Full Exam - General 1994 Cardiovascular auscultation of heart Overall: no murmurs 12/20/2017 None Full Exam - General 1994 Abdomen abdominal exam Overall: no tenderness 12/20/2017 None Full Exam - General 1994 Abdomen abdominal exam Overall: normal bowel sounds 12/20/2017 None Full Exam - General 1994 Lymphatic neck nodes Overall: anterior cervical chain benign 12/20/2017 None Full Exam - General 1994 Lymphatic neck nodes Overall: posterior cervical chain benign 12/20/2017 None Full Exam - General 1994 Musculoskeletal gait and station Overall: normal gait 12/20/2017 None Full Exam - General 1994 Musculoskeletal gait and station Overall: normal station 12/20/2017 None Full Exam - General 1994 Musculoskeletal head and neck Overall: head atraumatic 12/20/2017 None Full Exam - General 1994 Neurologic mental status Overall: alert 12/20/2017 None Full Exam - General 1994 Neurologic mental status Overall: oriented 12/20/2017 None Full Exam - General 1994 Neurologic motor Overall: normal bulk, tone 12/20/2017 None Full Exam - General 1994 Psychiatric orientation/consciousness Overall: oriented to person, place and time 12/20/2017 None Full Exam - General 1994 Psychiatric mood and affect Overall: normal mood and affect 12/20/2017 None Full Exam - General 1994 Psychiatric speech Overall: normal quality, no aphasia 12/20/2017 None Full Exam - General 1994 Psychiatric judgment/insight Overall: judgment and insight intact 12/20/2017 None Full Exam - General 1994 Constitutional general appearance Development: well developed 07/23/2017 None Full Exam - General 1994 Constitutional general appearance Development: appears stated age 0507/23/2017 None Full Exam - General 1994 Eyes conjunctiva/eyelids Overall: conjunctiva clear 07/23/2017 None Full Exam - General 1994 Eyes conjunctiva/eyelids Overall: cornea clear 07/23/2017 None Full Exam - General 1994 Eyes conjunctiva/eyelids Overall: eyelids normal 07/23/2017 None Full Exam - General 1994 Eyes pupils and irises Overall: pupils equal, round, reactive to light and accomodation 07/23/2017 None Full Exam - General 1994 Ears/Nose/Throat lips/teeth/gingiva Overall: benign lips 07/23/2017 None Full Exam - General 1994 Ears/Nose/Throat lips/teeth/gingiva Overall: normal dentition 07/23/2017 None Full Exam - General 1994 Ears/Nose/Throat lips/teeth/gingiva Overall: benign gingiva 07/23/2017 None Full Exam - General 1994 Ears/Nose/Throat lips/teeth/gingiva Overall: no masses 07/23/2017 None Full Exam - General 1994 Ears/Nose/Throat oral cavity/pharynx/larynx Overall: oral mucosa clear 07/23/2017 None Full Exam - General 1994 Neck thyroid Overall: normal size None Full Exam - General 1994 Neck thyroid Overall: normal consistency 07/23/2017 None Full Exam - General 1994 Neck thyroid Overall: nontender 07/23 None Full Exam - General 1994 Respiratory auscultation Overall: breath sounds clear bilaterally 07/23/2017 None Full Exam - General 1994 Respiratory respiratory effort/rhythm Overall: no retractions 07/23/2017 None Full Exam - General 1994 Respiratory respiratory effort/rhythm Overall: normal rate 07/23/2017 None Full Exam - General 1994 Cardiovascular auscultation of heart Overall: regular rate 07/23/2017 None Full Exam - General 1994 Cardiovascular auscultation of heart Overall: normal heart sounds 07/23/2017 None Full Exam - General 1994 Cardiovascular auscultation of heart Overall: no murmurs 07/23/2017 None Full Exam - General 1994 Abdomen abdominal exam Overall: no tenderness 07/23/2017 None Full Exam - General 1994 Abdomen abdominal exam Overall: normal bowel sounds 07/23/2017 None Full Exam - General 1994 Lymphatic neck nodes Overall: anterior cervical chain benign 07/23/2017 None Full Exam - General 1994 Lymphatic neck nodes Overall: posterior cervical chain benign 07/23/2017 None Full Exam - General 1994 Musculoskeletal gait and station Overall: normal gait 07/23/2017 None Full Exam - General 1994 Musculoskeletal gait and station Overall: normal station 07/23/2017 None Full Exam - General 1994 Musculoskeletal head and neck Overall: head atraumatic 07/23/2017 None Full Exam - General 1994 Neurologic mental status Overall: alert 07/23/2017 None Full Exam - General 1994 Neurologic mental status Overall: oriented 07/23/2017 None Full Exam - General 1994 Neurologic motor Overall: normal bulk, tone 07/23/2017 None Full Exam - General 1994 Psychiatric orientation/consciousness Overall: oriented to person, place and time 07/23/2017 None Full Exam - General 1994 Psychiatric mood and affect Overall: normal mood and affect 07/23/2017 None Full Exam - General 1994 Psychiatric speech Overall: normal quality, no aphasia 07/23/2017 None Full Exam - General 1994 Psychiatric judgment/insight Overall: judgment and insight intact 07/23/2017 None Full Exam - General 1994 Constitutional general appearance Development: well developed 12/29/2016 None Full Exam - General 1994 Constitutional general appearance Development: appears stated age 1012/29/2016 None Full Exam - General 1994 Eyes conjunctiva/eyelids Overall: conjunctiva clear 12/29/2016 None Full Exam - General 1994 Eyes conjunctiva/eyelids Overall: cornea clear 12/29/2016 None Full Exam - General 1994 Eyes conjunctiva/eyelids Overall: eyelids normal 12/29/2016 None Full Exam - General 1994 Eyes pupils and irises Overall: pupils equal, round, reactive to light and accomodation 12/29/2016 None Full Exam - General 1994 Ears/Nose/Throat lips/teeth/gingiva Overall: benign lips 12/29/2016 None Full Exam - General 1994 Ears/Nose/Throat lips/teeth/gingiva Overall: normal dentition 12/29/2016 None Full Exam - General 1994 Ears/Nose/Throat lips/teeth/gingiva Overall: benign gingiva 12/29/2016 None Full Exam - General 1994 Ears/Nose/Throat lips/teeth/gingiva Overall: no masses 12/29/2016 None Full Exam - General 1994 Ears/Nose/Throat oral cavity/pharynx/larynx Overall: oral mucosa clear 12/29/2016 None Full Exam - General 1994 Neck thyroid Overall: normal size None Full Exam - General 1994 Neck thyroid Overall: normal consistency 12/29/2016 None Full Exam - General 1994 Neck thyroid Overall: nontender 12/29 None Full Exam - General 1994 Respiratory auscultation Overall: breath sounds clear bilaterally 12/29/2016 None Full Exam - General 1994 Respiratory respiratory effort/rhythm Overall: no retractions 12/29/2016 None Full Exam - General 1994 Respiratory respiratory effort/rhythm Overall: normal rate 12/29/2016 None Full Exam - General 1994 Cardiovascular auscultation of heart Overall: regular rate 12/29/2016 None Full Exam - General 1994 Cardiovascular auscultation of heart Overall: normal heart sounds 12/29/2016 None Full Exam - General 1994 Cardiovascular auscultation of heart Overall: no murmurs 12/29/2016 None Full Exam - General 1994 Abdomen abdominal exam Overall: no tenderness 12/29/2016 None Full Exam - General 1994 Abdomen abdominal exam Overall: normal bowel sounds 12/29/2016 None Full Exam - General 1994 Lymphatic neck nodes Overall: anterior cervical chain benign 12/29/2016 None Full Exam - General 1994 Lymphatic neck nodes Overall: posterior cervical chain benign 12/29/2016 None Full Exam - General 1994 Musculoskeletal gait and station Overall: normal gait 12/29/2016 None Full Exam - General 1994 Musculoskeletal gait and station Overall: normal station 12/29/2016 None Full Exam - General 1994 Musculoskeletal head and neck Overall: head atraumatic 12/29/2016 None Full Exam - General 1994 Neurologic mental status Overall: alert 12/29/2016 None Full Exam - General 1994 Neurologic mental status Overall: oriented 12/29/2016 None Full Exam - General 1994 Neurologic motor Overall: normal bulk, tone 12/29/2016 None Full Exam - General 1994 Psychiatric orientation/consciousness Overall: oriented to person, place and time 12/29/2016 None Full Exam - General 1994 Psychiatric mood and affect Overall: normal mood and affect 12/29/2016 None Full Exam - General 1994 Psychiatric speech Overall: normal quality, no aphasia 12/29/2016 None Full Exam - General 1994 Psychiatric judgment/insight Overall: judgment and insight intact 12/29/2016 None Full Exam - General 1994 Constitutional general appearance Development: well developed 10/27/2016 None Full Exam - General 1994 Constitutional general appearance Development: appears stated age 0810/27/2016 None Full Exam - General 1994 Eyes conjunctiva/eyelids Overall: conjunctiva clear 10/27/2016 None Full Exam - General 1994 Eyes conjunctiva/eyelids Overall: cornea clear 10/27/2016 None Full Exam - General 1994 Eyes conjunctiva/eyelids Overall: eyelids normal 10/27/2016 None Full Exam - General 1994 Eyes pupils and irises Overall: pupils equal, round, reactive to light and accomodation 10/27/2016 None Full Exam - General 1994 Ears/Nose/Throat otoscopic exam External auditory canal: complete cerumen impaction 10/27/2016 None Full Exam - General 1994 Ears/Nose/Throat lips/teeth/gingiva Overall: benign lips 10/27/2016 None Full Exam - General 1994 Ears/Nose/Throat lips/teeth/gingiva Overall: normal dentition 10/27/2016 None Full Exam - General 1994 Ears/Nose/Throat lips/teeth/gingiva Overall: benign gingiva 10/27/2016 None Full Exam - General 1994 Ears/Nose/Throat lips/teeth/gingiva Overall: no masses 10/27/2016 None Full Exam - General 1994 Ears/Nose/Throat oral cavity/pharynx/larynx Overall: oral mucosa clear 10/27/2016 None Full Exam - General 1994 Neck thyroid Overall: normal size None Full Exam - General 1994 Neck thyroid Overall: normal consistency 10/27/2016 None Full Exam - General 1994 Neck thyroid Overall: nontender 10/27 None Full Exam - General 1994 Respiratory auscultation Overall: breath sounds clear bilaterally 10/27/2016 None Full Exam - General 1994 Respiratory respiratory effort/rhythm Overall: no retractions 10/27/2016 None Full Exam - General 1994 Respiratory respiratory effort/rhythm Overall: normal rate 10/27/2016 None Full Exam - General 1994 Cardiovascular auscultation of heart Overall: regular rate 10/27/2016 None Full Exam - General 1994 Cardiovascular auscultation of heart Overall: normal heart sounds 10/27/2016 None Full Exam - General 1994 Cardiovascular auscultation of heart Overall: no murmurs 10/27/2016 None Full Exam - General 1994 Abdomen abdominal exam Overall: no tenderness 10/27/2016 None Full Exam - General 1994 Abdomen abdominal exam Overall: normal bowel sounds 10/27/2016 None Full Exam - General 1994 Lymphatic neck nodes Overall: anterior cervical chain benign 10/27/2016 None Full Exam - General 1994 Lymphatic neck nodes Overall: posterior cervical chain benign 10/27/2016 None Full Exam - General 1994 Musculoskeletal gait and station Overall: normal gait 10/27/2016 None Full Exam - General 1994 Musculoskeletal gait and station Overall: normal station 10/27/2016 None Full Exam - General 1994 Musculoskeletal head and neck Overall: head atraumatic 10/27/2016 None Full Exam - General 1994 Neurologic mental status Overall: alert 10/27/2016 None Full Exam - General 1994 Neurologic mental status Overall: oriented 10/27/2016 None Full Exam - General 1994 Neurologic motor Overall: normal bulk, tone 10/27/2016 None Full Exam - General 1994 Psychiatric orientation/consciousness Overall: oriented to person, place and time 10/27/2016 None Full Exam - General 1994 Psychiatric mood and affect Overall: normal mood and affect 10/27/2016 None Full Exam - General 1994 Psychiatric speech Overall: normal quality, no aphasia 10/27/2016 None Full Exam - General 1994 Psychiatric judgment/insight Overall: judgment and insight intact 10/27/2016 None Full Exam - General 1994 Constitutional general appearance Development: well developed 09/28/2016 None Full Exam - General 1994 Constitutional general appearance Development: appears stated age 0709/28/2016 None Full Exam - General 1994 Eyes conjunctiva/eyelids Overall: conjunctiva clear 09/28/2016 None Full Exam - General 1994 Eyes conjunctiva/eyelids Overall: cornea clear 09/28/2016 None Full Exam - General 1994 Eyes conjunctiva/eyelids Overall: eyelids normal 09/28/2016 None Full Exam - General 1994 Eyes pupils and irises Overall: pupils equal, round, reactive to light and accomodation 09/28/2016 None Full Exam - General 1994 Ears/Nose/Throat otoscopic exam External auditory canal: complete cerumen impaction 09/28/2016 None Full Exam - General 1994 Ears/Nose/Throat lips/teeth/gingiva Overall: benign lips 09/28/2016 None Full Exam - General 1994 Ears/Nose/Throat lips/teeth/gingiva Overall: normal dentition 09/28/2016 None Full Exam - General 1994 Ears/Nose/Throat lips/teeth/gingiva Overall: benign gingiva 09/28/2016 None Full Exam - General 1994 Ears/Nose/Throat lips/teeth/gingiva Overall: no masses 09/28/2016 None Full Exam - General 1994 Ears/Nose/Throat oral cavity/pharynx/larynx Overall: oral mucosa clear 09/28/2016 None Full Exam - General 1994 Neck thyroid Overall: normal size None Full Exam - General 1994 Neck thyroid Overall: normal consistency 09/28/2016 None Full Exam - General 1994 Neck thyroid Overall: nontender 09/28 None Full Exam - General 1994 Respiratory auscultation Overall: breath sounds clear bilaterally 09/28/2016 None Full Exam - General 1994 Respiratory respiratory effort/rhythm Overall: no retractions 09/28/2016 None Full Exam - General 1994 Respiratory respiratory effort/rhythm Overall: normal rate 09/28/2016 None Full Exam - General 1994 Cardiovascular auscultation of heart Overall: regular rate 09/28/2016 None Full Exam - General 1994 Cardiovascular auscultation of heart Overall: normal heart sounds 09/28/2016 None Full Exam - General 1994 Cardiovascular auscultation of heart Overall: no murmurs 09/28/2016 None Full Exam - General 1994 Abdomen abdominal exam Overall: no tenderness 09/28/2016 None Full Exam - General 1994 Abdomen abdominal exam Overall: normal bowel sounds 09/28/2016 None Full Exam - General 1994 Lymphatic neck nodes Overall: anterior cervical chain benign 09/28/2016 None Full Exam - General 1994 Lymphatic neck nodes Overall: posterior cervical chain benign 09/28/2016 None Full Exam - General 1994 Musculoskeletal gait and station Overall: normal gait 09/28/2016 None Full Exam - General 1994 Musculoskeletal gait and station Overall: normal station 09/28/2016 None Full Exam - General 1994 Musculoskeletal head and neck Overall: head atraumatic 09/28/2016 None Full Exam - General 1994 Neurologic mental status Overall: alert 09/28/2016 None Full Exam - General 1994 Neurologic mental status Overall: oriented 09/28/2016 None Full Exam - General 1994 Neurologic motor Overall: normal bulk, tone 09/28/2016 None Full Exam - General 1994 Psychiatric orientation/consciousness Overall: oriented to person, place and time 09/28/2016 None Full Exam - General 1994 Psychiatric mood and affect Overall: normal mood and affect 09/28/2016 None Full Exam - General 1994 Psychiatric speech Overall: normal quality, no aphasia 09/28/2016 None Full Exam - General 1994 Psychiatric judgment/insight Overall: judgment and insight intact 09/28/2016 None Full Exam - General 1994 Constitutional general appearance Development: well developed 06/04/2016 None Full Exam - General 1994 Constitutional general appearance Development: appears stated age 0306/04/2016 None Full Exam - General 1994 Eyes conjunctiva/eyelids Overall: conjunctiva clear 06/04/2016 None Full Exam - General 1994 Eyes conjunctiva/eyelids Overall: cornea clear 06/04/2016 None Full Exam - General 1994 Eyes conjunctiva/eyelids Overall: eyelids normal 06/04/2016 None Full Exam - General 1994 Eyes pupils and irises Overall: pupils equal, round, reactive to light and accomodation 06/04/2016 None Full Exam - General 1994 Ears/Nose/Throat otoscopic exam External auditory canal: complete cerumen impaction 06/04/2016 None Full Exam - General 1994 Ears/Nose/Throat lips/teeth/gingiva Overall: benign lips 06/04/2016 None Full Exam - General 1994 Ears/Nose/Throat lips/teeth/gingiva Overall: normal dentition 06/04/2016 None Full Exam - General 1994 Ears/Nose/Throat lips/teeth/gingiva Overall: benign gingiva 06/04/2016 None Full Exam - General 1994 Ears/Nose/Throat lips/teeth/gingiva Overall: no masses 06/04/2016 None Full Exam - General 1994 Ears/Nose/Throat oral cavity/pharynx/larynx Overall: oral mucosa clear 06/04/2016 None Full Exam - General 1994 Neck thyroid Overall: normal size None Full Exam - General 1994 Neck thyroid Overall: normal consistency 06/04/2016 None Full Exam - General 1994 Neck thyroid Overall: nontender 06/04 None Full Exam - General 1994 Respiratory auscultation Overall: breath sounds clear bilaterally 06/04/2016 None Full Exam - General 1994 Respiratory respiratory effort/rhythm Overall: no retractions 06/04/2016 None Full Exam - General 1994 Respiratory respiratory effort/rhythm Overall: normal rate 06/04/2016 None Full Exam - General 1994 Cardiovascular auscultation of heart Overall: regular rate 06/04/2016 None Full Exam - General 1994 Cardiovascular auscultation of heart Overall: normal heart sounds 06/04/2016 None Full Exam - General 1994 Cardiovascular auscultation of heart Overall: no murmurs 06/04/2016 None Full Exam - General 1994 Abdomen abdominal exam Overall: no tenderness 06/04/2016 None Full Exam - General 1994 Abdomen abdominal exam Overall: normal bowel sounds 06/04/2016 None Full Exam - General 1994 Musculoskeletal gait and station Overall: normal gait 06/04/2016 None Full Exam - General 1994 Musculoskeletal gait and station Overall: normal station 06/04/2016 None Full Exam - General 1994 Musculoskeletal head and neck Overall: head atraumatic 06/04/2016 None Full Exam - General 1994 Neurologic mental status Overall: alert 06/04/2016 None Full Exam - General 1994 Neurologic mental status Overall: oriented 06/04/2016 None Full Exam - General 1994 Neurologic motor Overall: normal bulk, tone 06/04/2016 None Full Exam - General 1994 Psychiatric orientation/consciousness Overall: oriented to person, place and time 06/04/2016 None Full Exam - General 1994 Psychiatric mood and affect Overall: normal mood and affect 06/04/2016 None Full Exam - General 1994 Psychiatric speech Overall: normal quality, no aphasia 06/04/2016 None Full Exam - General 1994 Psychiatric judgment/insight Overall: judgment and insight intact 06/04/2016 None Full Exam - General 1994 Lymphatic neck nodes Overall: anterior cervical chain benign 06/04/2016 None Full Exam - General 1994 Lymphatic neck nodes Overall: posterior cervical chain benign 06/04/2016 None Full Exam - General 1994 Integument inspection of skin Location: back 06/04/2016 lipoma Procedures No Procedures data Vital Signs Date Vital 08/11/2018 Blood Pressure 1: 148/86 Code: 8480-6 BMI: 27.1 Code: 79978-0 Heart Rate 1: 75 bpm Height: 6' SpO2: 99% Weight: 200 lbs 12/20/2017 Blood Pressure 1: 160/82 Code: 8480-6 BMI: 27.0 Code: 57379-0 Heart Rate 1: 92 bpm Height: 6' SpO2: 97% Weight: 199 lbs 07/23/2017 Blood Pressure 1: 134/84 Code: 8480-6 BMI: 26.9 Code: 96968-2 Heart Rate 1: 68 bpm Height: 6' SpO2: 98% Weight: 198 lbs 8 oz 12/29/2016 Blood Pressure 1: 144/62 Code: 8480-6 BMI: 26.6 Code: 33329-6 Heart Rate 1: 102 bpm Height: 6' SpO2: 98% Weight: 196 lbs 10/27/2016 Blood Pressure 1: 138/88 Code: 8480-6 Blood Pressure 1: 136/70 Code: 8480-6 BMI: 26.6 Code: 84691-2 Heart Rate 1: 72 bpm Height: 6' SpO2: 98% Weight: 196 lbs 09/28/2016 Blood Pressure 1: 164/82 Code: 8480-6 BMI: 27.3 Code: 85081-6 Heart Rate 1: 83 bpm Height: 6' SpO2: 98% Weight: 201 lbs 08/27/2016 Blood Pressure 1: 148/82 Code: 8480-6 06/04/2016 Blood Pressure 1: 156/86 Code: 8480-6 Blood Pressure 2: 148/92 Code: 8480-6 BMI: 28.2 Code: 08028-6 Heart Rate 1: 80 bpm Height: 6' SpO2: 98% Weight: 208 lbs Functional Status No Functional Status data History of Present Illness Symptom Name Status Resu lt Effective Date Notes Quality stable 08/11/2018 None Onset and Resolution o ngoing 08/11/2018 None Onset of Symptom durin g adulthood 08/11/2018 None Blood Pressure Values patient checking blood pressure at home - did not bring in readings 08/11/2018 None Blood Pressure Values "white coat" (home SBP<129 / DBP<84) 08/11/2018 None Severity not consisten tly severe symptoms, the symptoms fluctuate from no symptoms to anxiety and headaches 08/11/2018 None Frequency of Episodes unchanged 08/11/2018 None Significant Family History hypertension 08/11/2018 None Triggers stress 08/11/2018 None Alleviating Factors me dication 08/11/2018 None Pertinent Findings Den ies confusion 08/11/2018 None Pertinent Findings Den ies dizziness 08/11/2018 None Pertinent Findings Den ies dyspnea 08/11/2018 None Pertinent Findings Den ies edema 08/11/2018 None Quality chronic 08/11/2018 None Quality constant 08/11/2018 None Quality worsening 08/11/2018 None Onset and Resolution o ngoing 08/11/2018 None Onset of Symptom durin g adulthood 08/11/2018 None Limitation on Activities does not limit activities 08/11/2018 None Triggers activity 08/11/2018 None Triggers family discord 08/11/2018 None Alleviating Factors rest 08/11/2018 None Exacerbating Factors a ctivity 08/11/2018 None Pertinent Findings Den ies avoidance behavior 08/11/2018 None Pertinent Findings Den ies dizziness 08/11/2018 None Pertinent Findings Den ies hyperventilation 08/11/2018 None Pertinent Findings Den ies lightheadedness 08/11/2018 None Pertinent Findings Den ies palpitations 08/11/2018 None Pertinent Findings res tlessness 08/11/2018 None Pertinent Findings Den ies tachycardia 08/11/2018 None Pertinent Findings Den ies tachypnea 08/11/2018 None Pertinent Findings Den ies vomiting 08/11/2018 None Pertinent Findings Den ies weakness 08/11/2018 None hypertension Quality sta ble 12/20/2017 None hypertension Onset and Resolution ongoing 12/20/2017 None hypertension Onset of Symptom during adulthood 12/20/2017 None hypertension Blood Pressure Values patient checking blood pressure at home - did not bring in readings 12/20/2017 None hypertension Blood Pressure Values "white coat" (home SBP<129 / DBP<84) 12/20/2017 None hypertension Severity no t consistently severe symptoms, the symptoms fluctuate from no symptoms to anxiety and headaches 12/20/2017 None hypertension Frequency of Episodes unchanged 12/20/2017 None hypertension Significant Family History hypertension 12/20/[address] ress 12/20/2017 None hypertension Alleviating Factors medication 12/20/2017 None hypertension Pertinent Findings Denies confusion 12/20/2017 None hypertension Pertinent Findings Denies dizziness 12/20/2017 None hypertension Pertinent Findings Denies dyspnea 12/20/2017 None hypertension Pertinent Findings Denies edema 12/20/2017 None anxiety Quality chronic 12/20/2017 None anxiety Quality constant 12/20/2017 None anxiety Quality worsening 12/20/2017 None anxiety Onset and Resolution ongoing 12/20/2017 None anxiety Onset of Symptom during adulthood 12/20/2017 None anxiety Limitation on Activities does not limit activities 12/20/2017 None anxiety Triggers activity 12/20/2017 None anxiety Triggers family discord 12/20/2017 None anxiety Alleviating Factors rest 12/20/2017 None anxiety Exacerbating Factors activity 12/20/2017 None anxiety Pertinent Findings Denies avoidance behavior 12/20/2017 None anxiety Pertinent Findings Denies dizziness 12/20/2017 None anxiety Pertinent Findings Denies hyperventilation 12/20/2017 None anxiety Pertinent Findings Denies lightheadedness 12/20/2017 None anxiety Pertinent Findings Denies palpitations 12/20/2017 None anxiety Pertinent Findings restlessness 12/20/2017 None anxiety Pertinent Findings Denies tachycardia 12/20/2017 None anxiety Pertinent Findings Denies tachypnea 12/20/2017 None anxiety Pertinent Findings Denies vomiting 12/20/2017 None anxiety Pertinent Findings Denies weakness 12/20/2017 None hypertension Quality sta ble 07/23/2017 None hypertension Onset and Resolution ongoing 07/23/2017 None hypertension Onset of Symptom during adulthood 07/23/2017 None hypertension Blood Pressure Values patient checking blood pressure at home - did not bring in readings 07/23/2017 None hypertension Blood Pressure Values "white coat" (home SBP<129 / DBP<84) 07/23/2017 None hypertension Severity no t consistently severe symptoms, the symptoms fluctuate from no symptoms to anxiety and headaches 07/23/2017 None hypertension Frequency of Episodes unchanged 07/23/2017 None hypertension Significant Family History hypertension 07/23/[address] ress 07/23/2017 None hypertension Alleviating Factors medication 07/23/2017 None hypertension Pertinent Findings Denies confusion 07/23/2017 None hypertension Pertinent Findings Denies dizziness 07/23/2017 None hypertension Pertinent Findings Denies dyspnea 07/23/2017 None hypertension Pertinent Findings Denies edema 07/23/2017 None anxiety Quality chronic 07/23/2017 None anxiety Quality worsening 07/23/2017 None anxiety Quality constant 07/23/2017 None anxiety Onset and Resolution ongoing 07/23/2017 None anxiety Onset of Symptom during adulthood 07/23/2017 None anxiety Limitation on Activities does not limit activities 07/23/2017 None anxiety Triggers activity 07/23/2017 None anxiety Triggers family discord 07/23/2017 None anxiety Alleviating Factors rest 07/23/2017 None anxiety Exacerbating Factors activity 07/23/2017 None anxiety Pertinent Findings Denies avoidance behavior 07/23/2017 None anxiety Pertinent Findings Denies dizziness 07/23/2017 None anxiety Pertinent Findings Denies hyperventilation 07/23/2017 None anxiety Pertinent Findings Denies lightheadedness 07/23/2017 None anxiety Pertinent Findings Denies palpitations 07/23/2017 None anxiety Pertinent Findings restlessness 07/23/2017 None anxiety Pertinent Findings Denies weakness 07/23/2017 None anxiety Pertinent Findings Denies vomiting 07/23/2017 None anxiety Pertinent Findings Denies tachypnea 07/23/2017 None anxiety Pertinent Findings Denies tachycardia 07/23/2017 None hypertension Quality sta ble 12/29/2016 None hypertension Onset and Resolution ongoing 12/29/2016 None hypertension Onset of Symptom during adulthood 12/29/2016 None hypertension Blood Pressure Values patient checking blood pressure at home - did not bring in readings 12/29/2016 None hypertension Severity no t consistently severe symptoms, the symptoms fluctuate from no symptoms to anxiety and headaches 12/29/2016 None hypertension Frequency of Episodes unchanged 12/29/2016 None hypertension Significant Family History hypertension 12/29/[address] ress 12/29/2016 None hypertension Pertinent Findings Denies confusion 12/29/2016 None hypertension Alleviating Factors medication 12/29/2016 None hypertension Pertinent Findings Denies dizziness 12/29/2016 None hypertension Pertinent Findings Denies dyspnea 12/29/2016 None hypertension Pertinent Findings Denies edema 12/29/2016 None hypertension Blood Pressure Values "white coat" (home SBP<129 / DBP<84) 12/29/2016 None hypertension Onset of Symptom during adulthood 10/27/2016 None hypertension Quality sta ble 10/27/2016 None hypertension Onset and Resolution ongoing 10/27/2016 None hypertension Blood Pressure Values patient checking blood pressure at home - did not bring in readings 10/27/2016 None hypertension Severity no t consistently severe symptoms, the symptoms fluctuate from no symptoms to anxiety and headaches 10/27/2016 None hypertension Frequency of Episodes unchanged 10/27/2016 None hypertension Significant Family History hypertension 10/27/[address] ress 10/27/2016 None hypertension Alleviating Factors medication 10/27/2016 None hypertension Pertinent Findings Denies confusion 10/27/2016 None hypertension Pertinent Findings Denies dizziness 10/27/2016 None hypertension Pertinent Findings Denies dyspnea 10/27/2016 None hypertension Pertinent Findings Denies edema 10/27/2016 None hypertension Pertinent Findings Denies dizziness 09/28/2016 None hypertension Pertinent Findings Denies dyspnea 09/28/2016 None hypertension Pertinent Findings Denies edema 09/28/2016 None hypertension Quality acu te 09/28/2016 None hypertension Onset and Resolution ongoing 09/28/2016 None hypertension Onset of Symptom during adulthood 09/28/2016 None hypertension Blood Pressure Values patient checking blood pressure at home - did not bring in readings 09/28/2016 None hypertension Severity no t consistently severe symptoms, the symptoms fluctuate from no symptoms to anxiety and headaches 09/28/2016 None hypertension Frequency of Episodes increasing 09/28/2016 None hypertension Significant Family History heart disease 09/28/2016 None cyst Location on the sarwat st 06/04/2016 None cyst Location on the back 06/04/2016 lower back cyst Quality chronic 06/04/2016 None cyst Quality non-tender 06/04/2016 None cyst Quality soft 06/04/2016 None cyst Onset and Resolution ongoing 06/04/2016 None cyst Pertinent Findings Denies tenderness 06/04/2016 None cyst Pertinent Findings Denies pain 06/04/2016 None cyst Pertinent Findings Denies rapid progression 06/04/2016 None hypertension Pertinent Findings Denies dizziness 06/04/2016 None hypertension Pertinent Findings Denies dyspnea 06/04/2016 None hypertension Pertinent Findings Denies edema 06/04/2016 None chest pain/pressure Location in the substernal area 06/04/2016 None chest pain/pressure Onset and Resolution sudden in onset 06/04/2016 None chest pain/pressure Onset of Symptom 1 weeks ago 06/04/2016 None chest pain/pressure Quality stabbing 06/04/2016 None chest pain/pressure Exacerbating Factors exertion 06/04/2016 None chest pain/pressure Pertinent Findings dyspnea on exertion 06/04/2016 None chest pain/pressure Pertinent Findings Denies edema 06/04/2016 None chest pain/pressure Pertinent Findings Denies lightheadedness 06/04/2016 None chest pain/pressure Pertinent Findings Denies palpitations 06/04/2016 None chest pain/pressure Pertinent Findings Denies tachypnea 06/04/2016 None chest pain/pressure Pertinent Findings Denies tachycardia 06/04/2016 None Advance Directives No Advance Directive data Encounters Encounter Performer Loca tion Codes Date ([id number]) [id number] EST. P ATIENT, LEVEL I Diagnosis: Impacted cerumen, bilateral[ICD10: H61.23] Nevin Wright MD, C CPT-4: 77765 08/18/2018 ([id number]) 30136 EST. P ATIENT, LEVEL III Diagnosis: Essential (primary) hypertension[ICD10: I10] Diagnosis: Impacted cerumen, bilateral[ICD10: H61.23] Nevin Wright MD, C CPT-4: 79196 08/11/2018 ([id number]) PREV VISIT E ST AGE 18-39 Diagnosis: Encounter for general adult medical examination with abnormal findings[ICD10: Z00.01] Sujatha Wright MD, [facility] CPT-4: 62854 12/20/2017 ([id number]) 81584 EST. P ATIENT, LEVEL III Diagnosis: Essential (primary) hypertension[ICD10: I10] Sujatha Wright MD, [facility] CPT-4: 18358 07/23/2017 ([id number]) 98929 EST. P ATIENT, LEVEL III Diagnosis: Essential (primary) hypertension[ICD10: I10] Sujatha Wright MD, [facility] CPT-4: 49561 12/29/2016 ([id number]) 36212 EST. P ATIENT, LEVEL III Diagnosis: Essential (primary) hypertension[ICD10: I10] Sujatha Wright MD, [facility] CPT-4: 67510 10/27/2016 ([id number]) 77777 EST. P ATIENT, LEVEL III Diagnosis: Essential (primary) hypertension[ICD10: I10] Sujatha Wright MD, [facility] CPT-4: 77931 09/28/2016 ([id number]) Miscellaneou s no charge Diagnosis: Elevated blood-pressure reading, without diagnosis of hypertension[ICD10: R03.0] Sujatha Wright MD, [facility] CPT-4: 79573 08/27/2016 OFFICE VISIT, NEW - LEVEL 3 Diagnosis: Elevated blood-pressure reading, without diagnosis of hypertension[ICD10: R03.0] Diagnosis: Exercise induced bronchospasm[ICD10: J45.990] [facility] CPT-4: 26016 06/04/2016 Plan of Care Planned Activity Notes C odes Status Date Visit Plan: Cerumen in right ear wa s cleansed at home, left ear cerumen removed with water pick. 08/18/2018 Appointment: Nurse Visit 08/18/2018 Patient Education: Patient Medication Summary Completed 08/18/2018 Visit Plan: Hypertension - uncontro lled - the patient's medications have been modified as documented in the visit note. The patient has been counseled to cut back on salt in diet for a no added salt diet, low fat d iet, start an exercise program with low weight bearing exercises and higher aerobic activity for heart health. The patient is to check blood pressure readings as an outpatient and either fax, call, or email the readings to the office next week for practitioner to review. The pt is to call for acute concerns. Cerumen impaction - removed on right side - unable to remove on the left - - pt advised to use olive oil in left ear then to return to clinic in one ear to have staff remove wax 08/11/2018 Appointment: Nevin Wright WPtel: [address] [facility] [phone] (15 min) Moderate 08/11/2018 Patient Education: Patient Medication Summary Completed 08/11/2018 Patient Education: Hypertension Completed 08/11/2018 Appointment: Pily Daniels WPtel: [address] [phone] [place] (30 min) Complex 05/04/2018 Appointment: Pily Daniels WPtel: [address] [phone] [place] (15 min) Moderate 02/23/2018 Appointment: Sujatha Ventura WPtel: [address] [phone] [place] (30 min) Complex 02/21/2018 Appointment: Sujatha Ventura WPtel: [phone] [place] (15 min) Moderate 01/21/2018 Visit Plan: Well Adult - pt was cou nseled about diet, exercise, and encouraged to follow a heart healthy diet and increase activity level. The patient was instructed to RTC yearly for well adult exams and PRN for acute illnesses. The pt was also instructed to have yearly labs for check of cholesterol, thyroid, chem panel, CBC, and renal functioning. Hypertension - uncontrolled - the patient's medications have been modified as documented in the visit note. The patient has been counseled to cut back on salt in diet for a no added salt diet, low fat diet, start an exercise program with low weight bearing exercises and higher aerobic activity for heart health. The patient is to check blood pressure readings as an outpatient and either fax, call, or email the readings to the office next week for practitioner to review. The pt is to call for acute concerns. Anxiety - the patient has uncontrolled anxiety and will benefit from an SSRI on a daily basis to attempt control of the symptoms of anxiety (tachycardia, overwhelming sensations, stress, insomnia, etc). Pt is aware of the risks and benefits of treatment with the above medications. 12/20/2017 Appointment: Sujatha Ventura WPtel: [phone] (30 min) Complex 12/20/2017 Patient Education: Patient Medication Summary Completed 12/20/2017 Visit Plan: Hypertension - well con trolled - continue with current medications, continue with no added salt diet. Pt has been encouraged to exercise daily. The pt has been advised to call the office if there are any acute concerns about change in blood pressure readings at home. 07/23/2017 Appointment: Sujatha Ventura WPtel: [phone] (15 min) Moderate 07/23/2017 Patient Education: Patient Medication Summary Completed 07/23/2017 Appointment: Sujatha Ventura WPtel: [phone] (15 min) Moderate 07/22/2017 Visit Plan: Hypertension - well con trolled - continue with current medications, continue with no added salt diet. Pt has been encouraged to exercise daily. The pt has been advised to call the office if there are any acute concerns about change in blood pressure readings at home. 12/29/2016 Appointment: Sujatha Ventura WPtel: [phone] (15 min) Moderate 12/29/2016 Patient Education: Patient Medication Summary Completed 12/29/2016 Patient Education: Obesity Completed 12/29/2016 Visit Plan: Hypertension - well con trolled - continue with current medications, continue with no added salt diet. Pt has been encouraged to exercise daily. The pt has been advised to call the office if there are any acute concerns about change in blood pressure readings at home. 10/27/2016 Appointment: Sujatha Ventura WPtel: [address] [place] [address] (15 min) Moderate 10/27/2016 Patient Education: Patient Medication Summary Completed 10/27/2016 Patient Education: Obesity Completed 10/27/2016 Visit Plan: Hypertension - uncontro lled - the patient's medications have been modified as documented in the visit note. The patient has been counseled to cut back on salt in diet for a no added salt diet, low fat d iet, start an exercise program with low weight bearing exercises and higher aerobic activity for heart health. The patient is to check blood pressure readings as an outpatient and either fax, call, or email the readings to the office next week for practitioner to review. The pt is to call for acute concerns. 09/28/2016 Appointment: Sujatha Ventura WPtel: [facility] (15 min) Moderate 09/28/2016 Patient Education: Patient Medication Summary Completed 09/28/2016 Patient Education: Obesity Completed 09/28/2016 Visit Plan: blood pressure check-co ntinue to monitor 08/27/2016 Patient Education: Patient Medication Summary Completed 08/27/2016 Visit Plan: Elevated Blood Pressure - without diagnosis of hypertension - pt has been instructed to check blood pressure as an outpatient, record blood pressure and heart rate and report to the clinic in two weeks on the findings. Pt advised to cut back on added salt in the diet. Exercised induced asthma-rx for proair inhaler provided and instructed on use. 06/04/2016 Appointment: Sujatha Ventura WPtel: [facility] New Patient 06/04/2016 Patient Education: Patient Medication Summary Completed 06/04/2016 Instructions Comment INCREASE LISINOPRIL TO 10MG DAILY start lexapro (escitalopram) 5mg in the evening . Well Adult - pt was counseled about di et, exercise, and encouraged to follow a heart healthy diet and increase activity level. The patient was instructed to RTC yearly for well adult exams and PRN for acute illnesses. The pt was also instructed to have yearly labs for check of cholesterol, thyroid, chem panel, CBC, and renal functioning. Hypertension - uncontrolled - the patient's medications have been modified as documented in the visit note. The patient has been counseled to cut back on salt in diet for a no added salt diet, low fat diet, start an exercise program with low weight bearing exercises and higher aerobic activity for heart health. The patient is to check blood pressure readings as an outpatient and either fax, call, or email the readings to the office next week for practitioner to review. The pt is to call for acute concerns. Anxiety - the patient has uncontrolled anxiety and will benefit from an SSRI on a daily basis to attempt control of the symptoms of anxiety (tachycardia, overwhelming sensations, stress, insomnia, etc). Pt is aware of the risks and benefits of treatment with the above medications. . blood pressure sarwat ck-continue to monitor . Hypertension - wel l controlled - continue with current medications, continue with no added salt diet. Pt has been encouraged to exercise daily. The pt has been advised to call the office if there are any acute concerns about change in blood pressure readings at home. RETURN FOR FASTING L ABS IN THE NEXT FEW WEEKS WHEN AVAILABLE KEEP TRACK OF BLOOD PRESSURES AT RANDOM TIMES DURING THE DAY OVER THE NEXT FEW WEEKS LIMIT SODIUM INTAKE. MAINTAIN REGULAR EXERCISE. LIMIT ALCOHOL INTAKE. . Elevated Blood Pressure - without bob gnosis of hypertension - pt has been instructed to check blood pressure as an outpatient, record blood pressure and heart rate and report to the clinic in two weeks on the findings. Pt advised to cut back on added salt in the diet. Exercised induced asthma-rx for proair inhaler provided and instructed on use. . Cerumen in right e ar was cleansed at home, left ear cerumen removed with water pick. decrease lexapro to 1/2 a pill a day x 5 days then 1/2 a pill every other day x 5 doses then stop use olive oil in your ear every night x 1 week then come to the office so we can get the wax out . Hypertension - uncontrolled - the sheree ent's medications have been modified as documented in the visit note. The patient has been counseled to cut back on salt in diet for a no added salt diet, low fat diet, start an exercise program with low weight bearing exercises and higher aerobic activity for heart health. The patient is to check blood pressure readings as an outpatient and either fax, call, or email the readings to the office next week for practitioner to review. The pt is to call for acute concerns. Cerumen impaction - removed on right side - unable to remove on the left - - pt advised to use olive oil in left ear then to return to clinic in one ear to have staff remove wax . Hypertension - wel l controlled - continue with current medications, continue with no added salt diet. Pt has been encouraged to exercise daily. The pt has been advised to call the office if there are any acute concerns about change in blood pressure readings at home. deplin continue lisinopril . Hypertension - well controlled - mars nue with current medications, continue with no added salt diet. Pt has been encouraged to exercise daily. The pt has been advised to call the office if there are any acute concerns about change in blood pressure readings at home. . Hypertension - unc ontrolled - the patient's medications have been modified as documented in the visit note. The patient has been counseled to cut back on salt in diet for a no added salt diet, low fat diet, start an exercise program with low weight bearing exercises and higher aerobic activity for heart health. The patient is to check blood pressure readings as an outpatient and either fax, call, or email the readings to the office next week for practitioner to review. The pt is to call for acute concerns.
--- OUTSIDE RECORDS SUMMARY | 2019-07-25 20:39 | XMS REPORT | CCD ---
Author Author Simeon Ventura Organization Nevin Wright MD, [facility] Address [address] [place] [address] Phone Care Team Providers Care Manager Generation Name Role Phone PP Unavailable CCM Unavailable Summary Purpose Interface Exchange Insurance Providers Payer name Policy type / Coverage type Covered green party ID Effective Begin Date Effective End Date [id number] 2016 Un known Family history Father Diagnosis Age At Onset Asthma Unknown Hypertension Unknown Runs in the family Diagnosis Age At Onset Thyroid Unknown Skin cancer Unknown Cancer Unknown Hypertension Unknown Arthritis Unknown Stroke Unknown Coronary Artery Disease Unknown Mother Diagnosis Age At Onset Thyroid Unknown Social History Social History Element Codes Description Effective Dates Marital status Unknown M arrskyler Mcdonald 06/04/2016 Number of children Unknown 0 currently ,due 07/04/16 06/04/2016 Living arrangements Unknown House 06/04/2016 Education level Unknown College Graduate 06/04/[address]: 156059164 Never smoker Quit chewing 6 months ago 06/04/2016 Allergies, Adverse Reactions, Alerts Allergies, Adverse Reactions, Alerts data not found Past Medical History Illness Codes Condition Status Onset Date Resolved Date Elevated blood-press ure reading, without diagnosis of hypertension ICD-9: 796.2 ICD-10: R03.0 Active 06/04/2016 Unknown Exercise induced bro nchospasm ICD-9: 493.81 ICD-10: J45.990 Active 06/04/2016 Unknown Problems Condition Codes Effectiv e Dates Condition Status Elevated blood-press ure reading, without diagnosis of hypertension ICD-9: 796.2 ICD-10: R03.0 06/04/2016 Active Exercise induced bro nchospasm ICD-9: 493.81 ICD-10: J45.990 06/04/2016 Active Medications Medication Codes Instruc tions Start Date Stop Date Sta tus Fill Instructions ProAir HFA 90 mcg/ac tuation aerosol inhaler RxNorm: 756225 1-2 Puff(s) INH Q4 SC N 06/04/2016 07/03/2016 In active ProAir HFA 90 mcg/ac tuation aerosol inhaler RxNorm: 078425 1-2 Puff(s) INH Q4 SC N 06/04/2016 06/03/2016 In active Medication Administered No Medication Administered data Immunizations No Immunization data Assessments Condition Codes Effectiv e Dates Elevated blood-pressure reading, without diagnosis of hypertension ICD-10: R03.0 ICD-9: 796.2 08/27/2016 Exercise induced bronchospasm ICD-10 : J45.990 ICD-9: 493.81 06/04/2016 Reason For Visit Reason For Visit Effective Dates Notes hypertension 06/04/2016 when running Results Observation Observation Code Item Item Code Result Date Tsh Ord6 hTSH II 1.07 uIU/mL 06/05/2016 Comp Metabolic Tod703 NA 139 mEq/L 06/05/2016 Comp Metabolic Nnl226 K 4.1 mEq/L 06/05/2016 Comp Metabolic Mgo982 CL 103 mEq/L 06/05/2016 Comp Metabolic Lgd126 CO2 26.0 mEq/L 06/05/2016 Comp Metabolic Iwb575 AN ION GAP 14 06/05/2016 Comp Metabolic Vxj706 GL UCOSE 88 mg/dL 06/05/2016 Comp Metabolic Dcu667 Cr eat 0.8 mg/dL 06/05/2016 Comp Metabolic Upo587 eG FR 127 ml/min/1.73m2 05/08 Comp Metabolic Uwr645 BUN 14 mg/dL 06/05/2016 Comp Metabolic Bfj828 B/ C Ratio 18.2 Ratio 06/05/2016 Comp Metabolic Acj538 CA LCIUM 10.0 mg/dL 06/05/2016 Comp Metabolic Ubq442 AL K PHOS 64 U/L 06/05/2016 Comp Metabolic Czo961 T(SGOT) 20 U/L 06/05/2016 Comp Metabolic Iyi676 AL T(SGPT) 29 U/L 06/05/2016 Comp Metabolic Pbi365 BI LI T 0.7 mg/dL 06/05/2016 Comp Metabolic Bru308 AL BUMIN 4.8 g/dL 06/05/2016 Comp Metabolic Wlr485 TP RO 7.3 g/dL 06/05/2016 Comp Metabolic Wtg885 GL OB 2.5 g/dL 06/05/2016 Comp Metabolic Dzv542 A/ G Ratio 1.9 Ratio 06/05/2016 Comp Metabolic Grl008 Os mo 277 mOsmo 06/05/2016 Cbc With Differential Ord2 WBC 6.43 K/ul 06/05/2016 Cbc With Differential Ord2 RBC 4.98 M/ul 06/05/2016 Cbc With Differential Ord2 HGB 15.7 g/dl 06/05/2016 Cbc With Differential Ord2 Neut% 63.3 % 06/05/2016 Cbc With Differential Ord2 HCT 44.3 % 06/05/2016 Cbc With Differential Ord2 MCV 89.0 fl 06/05/2016 Cbc With Differential Ord2 Lymph% 25.2 % 06/05/2016 Cbc With Differential Ord2 MCH 31.5 pg 06/05/2016 Cbc With Differential Ord2 [place]% 9.5 % 06/05/2016 Cbc With Differential Ord2 [...] 1.62 K/ul 06/05/2016 Cbc With Differential Ord2 [place] ABS# 0.6 K/ul 06/05/2016 Cbc With Differential Ord2 Eos ABS# 0.1 K/ul 06/05/2016 Cbc With Differential Ord2 Baso ABS# 0.0 K/ul 06/05/2016 Lipid Ord30 CHOL 132 mg/dL 06/05/2016 Lipid Ord30 HDL 44.0 mg/dl 06/05/2016 Lipid Ord30 TRIG 52 mg/dL 06/05/2016 Lipid Ord30 LDL 78 mg/dL 06/05/2016 Lipid Ord30 C/HDL 3.0 Ratio 06/05/2016 Review of Systems System Result Effective Dates Constitutional No recent illness 06/04/2016 Constitutional No [...] No Procedures data Vital Signs Date Vital 08/27/2016 Blood Pressure 1: 148/82 Code: 8480-6 06/04/2016 Blood Pressure 1: 156/86 Code: 8480-6 Blood Pressure 2: 148/92 Code: 8480-6 BMI: 28.2 Code: 16046-5 Heart Rate 1: 80 bpm Height: 6' SpO2: 98% Weight: 208 lbs Functional Status No Functional Status data History of Present Illness Symptom Name Status Resu lt Effective Date Notes cyst Location on the [address] 06/04/2016 [...] Encounters Encounter Performer Loca tion Codes Date () Lisy s no charge Diagnosis: Elevated blood-pressure reading, without diagnosis of hypertension[ICD10: R03.0] [facility] CPT-4: 05493 08/27/2016 OFFICE VISIT, NEW - LEVEL 3 Diagnosis: Elevated blood-pressure reading, without diagnosis of hypertension[ICD10: R03.0] Diagnosis: Exercise induced bronchospasm[ICD10: J45.990] [facility] CPT-4: 37894 06/04/2016 Plan of Care Planned Activity Notes C odes Status Date Visit Plan: blood pressure check-continue to monitor 08/27/2016 Patient Education: Patient Medication Summary Completed 08/27/2016 Visit Plan: Elevated Blood Pressure - w ithout diagnosis of hypertension - pt has been instructed to check blood pressure as an outpatient, record blood pressure and heart rate and report to the clinic in two weeks on the findings. Pt advised to cut back on added salt in the diet.Exercised induced asthma-rx for proair inhaler provided and instructed on use. 06/04/2016 Appointment: Sujatha Ventura [facility] [place] [phone] New Patient 06/04/2016 Patient Education: Patient Medication Summary Completed 06/04/2016 Instructions Comment . blood pressure sarwat ck-continue to monitor RETURN FOR FASTING L ABS IN THE [...]
--- OUTSIDE RECORDS SUMMARY | 2019-07-25 20:39 | XMS REPORT | CCD ---
Author Author Simeon Ventura Organization Nevin Wright MD, [facility] Address [address] [place] [address] Phone Care Team Providers Care Dental Chair Assembler Name Role Phone PP Unavailable CCM Unavailable Summary Purpose Interface Exchange Insurance Providers Payer name Policy type / Coverage type Covered green party ID Effective Begin Date Effective End Date [facility]/[employer] [id number] Un known Family history Father Diagnosis Age [...] College Graduate 06/04/[address]: 395287055 Never smoker Quit chewing 6 months ago 06/04/2016 Allergies, Adverse Reactions, Alerts Substance Reaction Codes Entered Date Inactivated Date Status * NO KNOWN FOOD IJEOMA RGIES Unknown 06/04/2016 No Inactive Date Active * NO KNOWN DRUG IJEOMA RGIES Unknown 06/04/2016 No Inactive Date Active Past Medical History Illness Codes Condition Status Onset Date Resolved Date Essential (primary) hypertension ICD-9: 401.9 ICD-10: I10 Active 09/28/2016 Unknown Impacted cerumen, bi lateral ICD-9: 380.4 ICD-10: H61.23 Active 08/11/2018 Unknown Encounter for genera l adult medical examination with abnormal findings ICD-9: V70.0 ICD-10: Z00.01 Active 12/20/2017 Unknown Hypertension Unknown Active 09/28/2016 Unknow n Elevated blood-press ure reading, without diagnosis of hypertension ICD-9: 796.2 ICD-10: R03.0 Active 06/04/2016 Unknown Exercise induced bro nchospasm ICD-9: 493.81 ICD-10: J45.990 Active 06/04/2016 Unknown Problems Condition Codes Effectiv e Dates Condition Status Essential (primary) hypertension ICD-9: 401.9 ICD-10: I10 09/28/2016 Active Impacted cerumen, bi lateral ICD-9: 380.4 ICD-10: H61.23 08/11/2018 Active Encounter for genera l adult medical examination with abnormal findings ICD-9: V70.0 ICD-10: Z00.01 12/20/2017 Active Hypertension Unknown 09/28/2016 Active Elevated blood-press ure reading, without diagnosis of hypertension ICD-9: 796.2 ICD-10: R03.0 06/04/2016 Active Exercise induced bro nchospasm ICD-9: 493.81 ICD-10: J45.990 06/04/2016 Active Medications Medication Codes Instruc tions Start Date Stop Date Sta tus Fill Instructions lisinopril 20 mg tablet RxNorm: 879318 1 Tablet(s) PO daily 08/11/2018 08/05/2019 Active Lexapro 10 mg tablet RxNorm: 516553 1 Tablet(s) PO daily 05/04/2018 04/28/2019 Active Lexapro 10 mg tablet RxNorm: 826757 1 Tablet(s) PO daily 05/04/2018 06/02/2018 Inactive Lexapro 5 mg tablet RxNorm: 800684 1 Tablet(s) PO QPM 01/10/2018 07/08/2018 Inactive Lexapro 5 mg tablet RxNorm: 508026 1 Tablet(s) PO QPM 12/20/2017 12/19/2017 Inactive lisinopril 10 mg tablet RxNorm: 579620 1 Tablet(s) PO daily 12/20/2017 08/10/2018 Inactive Lexapro 5 mg tablet RxNorm: 193031 1 Tablet(s) PO QPM 12/20/2017 01/09/2018 Inactive lisinopril 5 mg tablet RxNorm: 887423 1 Tablet(s) PO daily 09/27/2017 12/19/2017 Inactive lisinopril 5 mg tablet RxNorm: 707493 1 Tablet(s) PO daily 01/13/2017 09/26/2017 Inactive lisinopril 5 mg tablet RxNorm: 729249 1 Tablet(s) PO daily 12/29/2016 01/12/2017 Inactive lisinopril 5 mg tablet RxNorm: 179769 1 Tablet(s) PO daily 10/27/2016 12/28/2016 Inactive lisinopril 5 mg tablet RxNorm: 301383 1 Tablet(s) PO daily 09/28/2016 10/26/2016 Inactive ProAir HFA 90 mcg/ac tuation aerosol inhaler RxNorm: 419854 1-2 Puff(s) INH Q4 IN N 06/04/2016 07/03/2016 In active ProAir HFA 90 mcg/ac tuation aerosol inhaler RxNorm: 846379 1-2 Puff(s) INH Q4 IN N 06/04/2016 06/03/2016 In active Lexapro 10 mg tablet RxNorm: 455450 1 Tablet(s) PO daily No Start Date 05/03/2018 Inactive Medication Administered No Medication Administered data Immunizations No Immunization data Assessments Condition Codes Effectiv e Dates Essential (primary) hypertension ICD -10: I10 ICD-9: 401.9 08/11/2018 Impacted cerumen, bilateral ICD-10: H61.23 ICD-9: 380.4 08/11/2018 Encounter for general adult medical exam ination with abnormal findings ICD-10: Z00.01 ICD-9: V70.0 12/20/2017 Elevated blood-pressure reading, without diagnosis of hypertension ICD-10: R03.0 ICD-9: 796.2 08/27/2016 Exercise induced bronchospasm ICD-10 : J45.990 ICD-9: 493.81 06/04/2016 Reason For Visit Reason For Visit Effective Dates Notes hypertension 08/11/2018 hypertension 12/20/2017 hypertension 07/23/2017 hypertension [...] 31.0 pg 12/20/2017 Cbc With Differential Ord2 [place]% 9.4 % 12/20/2017 Cbc With Differential Ord2 [...] 1.70 K/ul 12/20/2017 Cbc With Differential Ord2 [place] ABS# 0.4 K/ul 12/20/2017 Cbc With Differential Ord2 Eos ABS# 0.1 K/ul 12/20/2017 Cbc With Differential Ord2 Baso ABS# 0.0 K/ul 12/20/2017 Comp Metabolic Nps943 NA 139 mEq/L 12/20/2017 Comp Metabolic Gyc523 K 4.0 mEq/L 12/20/2017 Comp Metabolic Ktb846 CL 102 mEq/L 12/20/2017 Comp Metabolic Dye956 CO2 26.0 mEq/L 12/20/2017 Comp Metabolic Fqd962 AN ION GAP 15 12/20/2017 Comp Metabolic Uxx408 GL UCOSE 97 mg/dL 12/20/2017 Comp Metabolic Zrt917 Cr eat 0.8 mg/dL 12/20/2017 Comp Metabolic Ihv916 eG FR 122 ml/min/1.73m2 12/06 Comp Metabolic Pqy439 BUN 13 mg/dL 12/20/2017 Comp Metabolic Iqx030 B/ C Ratio 16.5 Ratio 12/20/2017 Comp Metabolic Ant036 CA LCIUM 10.2 mg/dL 12/20/2017 Comp Metabolic Stp311 AL K PHOS 63 U/L 12/20/2017 Comp Metabolic Acm398 T(SGOT) 17 U/L 12/20/2017 Comp Metabolic Rel045 AL T(SGPT) 23 U/L 12/20/2017 Comp Metabolic Uyo299 BI LI T 0.6 mg/dL 12/20/2017 Comp Metabolic Tys806 AL BUMIN 5.0 g/dL 12/20/2017 Comp Metabolic Flv169 TP RO 7.5 g/dL 12/20/2017 Comp Metabolic Iww971 GL OB 2.5 g/dL 12/20/2017 Comp Metabolic Txc069 A/ G Ratio 2.0 Ratio 12/20/2017 Comp Metabolic Cdu658 Os mo 278 mOsmo 12/20/2017 Tsh Ord6 TSH (3rd IS) 1.52 uIU/mL 12/20/2017 Tsh Ord6 hTSH II 1.07 uIU/mL 06/05/2016 Comp Metabolic Hpg340 NA 139 mEq/L 06/05/2016 Comp Metabolic Zyu169 K 4.1 mEq/L 06/05/2016 Comp Metabolic Uyn085 CL 103 mEq/L 06/05/2016 Comp Metabolic Zie354 CO2 26.0 mEq/L 06/05/2016 Comp Metabolic Ppo961 AN ION GAP 14 06/05/2016 Comp Metabolic Ldq912 GL UCOSE 88 mg/dL 06/05/2016 Comp Metabolic Njh880 Cr eat 0.8 mg/dL 06/05/2016 Comp Metabolic Dcb951 eG FR 127 ml/min/1.73m2 05/08 Comp Metabolic Yoa593 BUN 14 mg/dL 06/05/2016 Comp Metabolic Hti486 B/ C Ratio 18.2 Ratio 06/05/2016 Comp Metabolic Dma506 CA LCIUM 10.0 mg/dL 06/05/2016 Comp Metabolic Xoa213 AL K PHOS 64 U/L 06/05/2016 Comp Metabolic Jnw479 T(SGOT) 20 U/L 06/05/2016 Comp Metabolic Reo299 AL T(SGPT) 29 U/L 06/05/2016 Comp Metabolic Jiz633 BI LI T 0.7 mg/dL 06/05/2016 Comp Metabolic Mqm666 AL BUMIN 4.8 g/dL 06/05/2016 Comp Metabolic Sgy074 TP RO 7.3 g/dL 06/05/2016 Comp Metabolic Fsr883 GL OB 2.5 g/dL 06/05/2016 Comp Metabolic Mlo778 A/ G Ratio 1.9 Ratio 06/05/2016 Comp Metabolic Vel172 Os mo 277 mOsmo 06/05/2016 Cbc With [...] 31.5 pg 06/05/2016 Cbc With Differential Ord2 [place]% 9.5 % 06/05/2016 Cbc With Differential Ord2 [...] 1.62 K/ul 06/05/2016 Cbc With Differential Ord2 [place] ABS# 0.6 K/ul 06/05/2016 Cbc With Differential [...] lips 08/11/2018 None Full Exam - General 1994 Ears/Nose/Throat lips/teeth/gingiva Overall: normal dentition 08/11/2018 None [...] 1: 148/86 Code: 8480-6 BMI: 27.1 Code: 15282-6 Heart Rate 1: 75 bpm Height: 6' SpO2: 99% Weight: 200 lbs 12/20/2017 Blood Pressure 1: 160/82 Code: 8480-6 BMI: 27.0 Code: 51175-9 Heart Rate 1: 92 bpm Height: 6' SpO2: 97% Weight: 199 lbs 07/23/2017 Blood Pressure 1: 134/84 Code: 8480-6 BMI: 26.9 Code: 78288-3 Heart Rate 1: 68 bpm Height: 6' SpO2: 98% Weight: 198 lbs 8 oz 12/29/2016 Blood Pressure 1: 144/62 Code: 8480-6 BMI: 26.6 Code: 48432-9 Heart Rate 1: 102 bpm Height: 6' SpO2: 98% Weight: 196 lbs 10/27/2016 Blood Pressure 1: 138/88 Code: 8480-6 Blood Pressure 1: 136/70 Code: 8480-6 BMI: 26.6 Code: 44486-3 Heart Rate 1: 72 bpm Height: 6' SpO2: 98% Weight: 196 lbs 09/28/2016 Blood Pressure 1: 164/82 Code: 8480-6 BMI: 27.3 Code: 07378-0 Heart Rate 1: 83 bpm Height: 6' SpO2: 98% Weight: 201 lbs 08/27/2016 Blood Pressure 1: 148/82 Code: 8480-6 06/04/2016 Blood Pressure 1: 156/86 Code: 8480-6 Blood Pressure 2: 148/92 Code: 8480-6 BMI: 28.2 Code: 81546-5 Heart Rate 1: 80 bpm Height: 6' [...] Encounters Encounter Performer Loca tion Codes Date ([id number]) 86544 EST. P ATIENT, LEVEL III Diagnosis: Essential (primary) hypertension[ICD10: I10] Diagnosis: Impacted cerumen, bilateral[ICD10: H61.23] Nevin Wright MD, [facility] CPT-4: 09044 08/11/2018 ([id number]) PREV VISIT E ST AGE 18-39 Diagnosis: Encounter for general adult medical examination with abnormal findings[ICD10: Z00.01] Sujatha Wright MD, [facility] CPT-4: 03195 12/20/2017 ([id number]) 72944 EST. P ATIENT, LEVEL III Diagnosis: Essential (primary) hypertension[ICD10: I10] Sujatha Wright MD, [facility] CPT-4: 78987 07/23/2017 ([id number]) 14408 EST. P ATIENT, LEVEL III Diagnosis: Essential (primary) hypertension[ICD10: I10] Sujatha Wright MD, [facility] CPT-4: 04802 12/29/2016 ([id number]) 78533 EST. P ATIENT, LEVEL III Diagnosis: Essential (primary) hypertension[ICD10: I10] [facility] CPT-4: 21701 10/27/2016 ([id number]) 49795 EST. P ATIENT, LEVEL III Diagnosis: Essential (primary) hypertension[ICD10: I10] Sujatha Wright MD, [facility] CPT-4: 09273 09/28/2016 ([id number]) Miscellaneou s no charge Diagnosis: Elevated blood-pressure reading, without diagnosis of hypertension[ICD10: R03.0] Sujatha Wright MD, [facility] CPT-4: 72458 08/27/2016 OFFICE VISIT, NEW - LEVEL 3 Diagnosis: Elevated blood-pressure reading, without diagnosis of hypertension[ICD10: R03.0] Diagnosis: Exercise induced bronchospasm[ICD10: J45.990] Sujatha Wright MD, [facility] CPT-4: 58885 06/04/2016 Plan of Care Planned Activity Notes C odes Status Date Visit Plan: Hypertension - uncontro lled - [...] ear to have staff remove wax 08/11/2018 Patient Education: Patient Medication Summary Completed 08/11/2018 Patient Education: Hypertension Completed 08/11/2018 Appointment[phone] [facility] (30 min) Complex 05/04/2018 Appointment: Jeremiah Pily WPtel: [phone] [facility]66[facility] (15 min) Moderate 02/23/2018 Appointment: Sujatha Ventura WPtel: [phone] [phone] [place] (30 min) Complex 02/21/2018 Appointment: Sujatha Ventura WPtel: [phone] [facility] [place] [address] (15 min) Moderate 01/21/2018 Visit Plan: Well [...] above medications. 12/20/2017 Appointment: Sujatha Ventura WPtel: [phone] [phone] (30 min) Complex 12/20/2017 Patient Education: Patient [...] at home. 07/23/2017 Appointment: Sujatha Ventura WPtel: [phone] [phone] (15 min) Moderate 07/23/2017 Patient Education: Patient Medication Summary Completed 07/23/2017 Appointment: Sujatha Ventura WPtel: [facility]4 [phone] (15 min) Moderate 07/22/2017 Visit Plan: Hypertension - well con trolled - continue with current medications, continue with no added salt diet. Pt has been encouraged to exercise daily. The pt has been advised to call the office if there are any acute concerns about change in blood pressure readings at home. 12/29/2016 Appointment: Sujatha Ventura WPtel: [facility]1 [phone] (15 min) Moderate 12/29/2016 Patient Education: Patient [...] at home. 10/27/2016 Appointment: Sujatha Ventura WPtel: [facility]6 [phone] (15 min) Moderate 10/27/2016 Patient Education: Patient [...] acute concerns. 09/28/2016 Appointment: Sujatha Ventura WPtel: [facility]0 [phone] [place] (15 min) Moderate 09/28/2016 Patient Education: Patient [...] on use. 06/04/2016 Appointment: Sujatha Ventura WPtel: [phone] New Patient 06/04/2016 Patient Education: Patient Medication [...] proair inhaler provided and instructed on use. decrease lexapro to 1/2 a pill a [...]
--- OUTSIDE RECORDS SUMMARY | 2019-07-25 20:39 | XMS REPORT | CCD ---
Author Author Simeon Ventura Organization Nevin Wright MD, [facility] Address [address] [place] [address] Phone Care Team Providers Care Employee Operations Examiner Name Role Phone PP Unavailable CCM Unavailable Summary Purpose Interface Exchange Insurance Providers Payer name Policy type / Coverage type Covered republican ID Effective Begin Date Effective End Date [id number] 2016 Un known Family history Father [...] College Graduate 06/04/[address]: 021890416 Never smoker Quit chewing 6 months ago [...] HFA 90 mcg/ac tuation aerosol inhaler RxNorm: 429392 1-2 Puff(s) INH Q4 NV N 06/04/2016 07/03/2016 In active ProAir HFA 90 mcg/ac tuation aerosol inhaler RxNorm: 985208 1-2 Puff(s) INH Q4 NV N 06/04/2016 06/03/2016 In active Medication Administered [...] hTSH II 1.07 uIU/mL 06/05/2016 Comp Metabolic Lvo238 NA 139 mEq/L 06/05/2016 Comp Metabolic Xkj622 K 4.1 mEq/L 06/05/2016 Comp Metabolic Jkm822 CL 103 mEq/L 06/05/2016 Comp Metabolic Hwl489 CO2 26.0 mEq/L 06/05/2016 Comp Metabolic Jsm791 AN ION GAP 14 06/05/2016 Comp Metabolic Ivs211 GL UCOSE 88 mg/dL 06/05/2016 Comp Metabolic Hsf255 Cr eat 0.8 mg/dL 06/05/2016 Comp Metabolic Kxw074 eG FR 127 ml/min/1.73m2 05/08 Comp Metabolic Saf292 BUN 14 mg/dL 06/05/2016 Comp Metabolic Fkn158 B/ C Ratio 18.2 Ratio 06/05/2016 Comp Metabolic Fbm834 CA LCIUM 10.0 mg/dL 06/05/2016 Comp Metabolic Lxy071 AL K PHOS 64 U/L 06/05/2016 Comp Metabolic Mhd012 T(SGOT) 20 U/L 06/05/2016 Comp Metabolic Oat909 AL T(SGPT) 29 U/L 06/05/2016 Comp Metabolic Cys397 BI LI T 0.7 mg/dL 06/05/2016 Comp Metabolic Psk238 AL BUMIN 4.8 g/dL 06/05/2016 Comp Metabolic Jcc195 TP RO 7.3 g/dL 06/05/2016 Comp Metabolic Lrp657 GL OB 2.5 g/dL 06/05/2016 Comp Metabolic Jsr452 A/ G Ratio 1.9 Ratio 06/05/2016 Comp Metabolic Ehj563 Os mo 277 mOsmo 06/05/2016 Cbc With Differential Ord2 WBC 6.43 K/ul 06/05/2016 Cbc With Differential Ord2 RBC 4.98 M/ul 06/05/2016 Cbc With Differential Ord2 HGB 15.7 g/dl 06/05/2016 Cbc With Differential Ord2 HCT 44.3 % 06/05/2016 Cbc With Differential Ord2 Neut% 63.3 % 06/05/2016 Cbc With Differential Ord2 Lymph% 25.2 % 06/05/2016 Cbc With Differential Ord2 MCV 89.0 fl 06/05/2016 Cbc With Differential Ord2 MCH 31.5 pg 06/05/2016 Cbc With Differential Ord2 [place]% 9.5 % 06/05/2016 Cbc With Differential Ord2 [...] 1.62 K/ul 06/05/2016 Cbc With Differential Ord2 [place] ABS# 0.6 K/ul 06/05/2016 Cbc With Differential [...] 2: 148/92 Code: 8480-6 BMI: 28.2 Code: 89669-1 Heart Rate 1: 80 bpm Height: 6' [...] hypertension[ICD10: R03.0] [facility] CPT-4: 68304 08/27/2016 OFFICE VISIT, NEW - LEVEL 3 Diagnosis: Elevated blood-pressure reading, without diagnosis of hypertension[ICD10: R03.0] Diagnosis: Exercise induced bronchospasm[ICD10: J45.990] [facility] CPT-4: 95770 06/04/2016 Plan of Care Planned Activity Notes [...] on use. 06/04/2016 Appointment: Sujatha Ventura WPtel: [phone] New Patient 06/04/2016 Patient Education: Patient Medication [...]
--- OUTSIDE RECORDS SUMMARY | 2019-07-25 20:40 | XMS REPORT | CCD ---
Author Author Simeon Ventura Organization Nevin Wright MD, [facility] Address [address] [place] [address] Phone Care Team Providers Care Open Claims Representative Name Role Phone PP Unavailable CCM Unavailable Summary Purpose Interface Exchange Insurance Providers Payer name Policy type / Coverage type Covered green party ID Effective Begin Date Effective End Date [facility] [id number] Un known Family history Father Diagnosis Age [...] College Graduate 06/04/[address]: 832440211 Never smoker Quit chewing 6 months ago 06/04/2016 Allergies, Adverse Reactions, Alerts Substance Reaction Codes Entered Date Inactivated Date Status * NO KNOWN FOOD IJEOMA RGIES Unknown 06/04/2016 No Inactive Date Active * NO KNOWN DRUG IJEOMA RGIES Unknown 06/04/2016 No Inactive Date Active Past Medical History Illness Codes Condition Status Onset Date Resolved Date Encounter for courtney l adult medical examination with abnormal findings ICD-9: V70.0 ICD-10: Z00.01 Active 12/20/2017 Unknown Essential (primary) hypertension ICD-9: 401.9 ICD-10: I10 Active 09/28/2016 Unknown Hypertension Unknown Active 09/28/2016 Unknow n Elevated blood-press ure reading, without diagnosis of hypertension ICD-9: 796.2 ICD-10: R03.0 Active 06/04/2016 Unknown Exercise induced bro nchospasm ICD-9: 493.81 ICD-10: J45.990 Active 06/04/2016 Unknown Problems Condition Codes Effectiv e Dates Condition Status Encounter for genera l adult medical examination with abnormal findings ICD-9: V70.0 ICD-10: Z00.01 12/20/2017 Active Essential (primary) hypertension ICD-9: 401.9 ICD-10: I10 09/28/2016 Active Hypertension Unknown 09/28/2016 Active Elevated blood-press ure reading, without diagnosis of hypertension ICD-9: 796.2 ICD-10: R03.0 06/04/2016 Active Exercise induced bro nchospasm ICD-9: 493.81 ICD-10: J45.990 06/04/2016 Active Medications Medication Codes Instruc tions Start Date Stop Date Sta tus Fill Instructions Lexapro 10 mg tablet RxNorm: 119504 1 Tablet(s) PO daily 05/04/2018 04/28/2019 Active Lexapro 10 mg tablet RxNorm: 891325 1 Tablet(s) PO daily 05/04/2018 06/02/2018 Active Lexapro 5 mg tablet RxNorm: 424150 1 Tablet(s) PO QPM 01/10/2018 07/08/2018 Active lisinopril 10 mg tablet RxNorm: 277254 1 Tablet(s) PO daily 12/20/2017 09/14/2018 Active Lexapro 5 mg tablet RxNorm: 952931 1 Tablet(s) PO QPM 12/20/2017 12/19/2017 Inactive Lexapro 5 mg tablet RxNorm: 092275 1 Tablet(s) PO QPM 12/20/2017 01/09/2018 Inactive lisinopril 5 mg tablet RxNorm: 813842 1 Tablet(s) PO daily 09/27/2017 12/19/2017 Inactive lisinopril 5 mg tablet RxNorm: 612341 1 Tablet(s) PO daily 01/13/2017 09/26/2017 Inactive lisinopril 5 mg tablet RxNorm: 390440 1 Tablet(s) PO daily 12/29/2016 01/12/2017 Inactive lisinopril 5 mg tablet RxNorm: 759553 1 Tablet(s) PO daily 10/27/2016 12/28/2016 Inactive lisinopril 5 mg tablet RxNorm: 431236 1 Tablet(s) PO daily 09/28/2016 10/26/2016 Inactive ProAir HFA 90 mcg/ac tuation aerosol inhaler RxNorm: 811040 1-2 Puff(s) INH Q4 IA N 06/04/2016 07/03/2016 In active ProAir HFA 90 mcg/ac tuation aerosol inhaler RxNorm: 222953 1-2 Puff(s) INH Q4 IA N 06/04/2016 06/03/2016 In active Lexapro 10 mg tablet RxNorm: 150800 1 Tablet(s) PO daily No Start Date 05/03/2018 Inactive Medication Administered No Medication Administered data Immunizations No Immunization data Assessments Condition Codes Effectiv e Dates Encounter for general adult medical exam ination with abnormal findings ICD-10: Z00.01 ICD-9: V70.0 12/20/2017 Essential (primary) hypertension ICD -10: I10 ICD-9: 401.9 07/23/2017 Elevated blood-pressure reading, without diagnosis of hypertension ICD-10: R03.0 ICD-9: 796.2 08/27/2016 Exercise induced bronchospasm ICD-10 : J45.990 ICD-9: 493.81 06/04/2016 Reason For Visit Reason For Visit Effective Dates Notes hypertension 12/20/2017 hypertension 07/23/2017 hypertension 12/29/2016 hypertension [...] 31.0 pg 12/20/2017 Cbc With Differential Ord2 [place]% 9.4 % 12/20/2017 Cbc With Differential Ord2 [...] 1.70 K/ul 12/20/2017 Cbc With Differential Ord2 [place] ABS# 0.4 K/ul 12/20/2017 Cbc With Differential Ord2 Eos ABS# 0.1 K/ul 12/20/2017 Cbc With Differential Ord2 Baso ABS# 0.0 K/ul 12/20/2017 Comp Metabolic Fmw123 NA 139 mEq/L 12/20/2017 Comp Metabolic Pwb716 K 4.0 mEq/L 12/20/2017 Comp Metabolic Sci892 CL 102 mEq/L 12/20/2017 Comp Metabolic Pue724 CO2 26.0 mEq/L 12/20/2017 Comp Metabolic Pfu125 AN ION GAP 15 12/20/2017 Comp Metabolic Yoz379 GL UCOSE 97 mg/dL 12/20/2017 Comp Metabolic Jzm999 Cr eat 0.8 mg/dL 12/20/2017 Comp Metabolic Gvt529 eG FR 122 ml/min/1.73m2 12/06 Comp Metabolic Bkf347 BUN 13 mg/dL 12/20/2017 Comp Metabolic Cze657 B/ C Ratio 16.5 Ratio 12/20/2017 Comp Metabolic Hmx239 CA LCIUM 10.2 mg/dL 12/20/2017 Comp Metabolic Esd212 AL K PHOS 63 U/L 12/20/2017 Comp Metabolic Qwx822 T(SGOT) 17 U/L 12/20/2017 Comp Metabolic Emx768 AL T(SGPT) 23 U/L 12/20/2017 Comp Metabolic Vum915 BI LI T 0.6 mg/dL 12/20/2017 Comp Metabolic Axd198 AL BUMIN 5.0 g/dL 12/20/2017 Comp Metabolic Vug217 TP RO 7.5 g/dL 12/20/2017 Comp Metabolic Jvf878 GL OB 2.5 g/dL 12/20/2017 Comp Metabolic Jjv708 A/ G Ratio 2.0 Ratio 12/20/2017 Comp Metabolic Pcy187 Os mo 278 mOsmo 12/20/2017 Tsh Ord6 TSH (3rd IS) 1.52 uIU/mL 12/20/2017 Tsh Ord6 hTSH II 1.07 uIU/mL 06/05/2016 Comp Metabolic Kjb180 NA 139 mEq/L 06/05/2016 Comp Metabolic Cbv972 K 4.1 mEq/L 06/05/2016 Comp Metabolic Bbt658 CL 103 mEq/L 06/05/2016 Comp Metabolic Qux648 CO2 26.0 mEq/L 06/05/2016 Comp Metabolic Hlx845 AN ION GAP 14 06/05/2016 Comp Metabolic Vnk905 GL UCOSE 88 mg/dL 06/05/2016 Comp Metabolic Dbk674 Cr eat 0.8 mg/dL 06/05/2016 Comp Metabolic Acc509 eG FR 127 ml/min/1.73m2 05/08 Comp Metabolic Jms346 BUN 14 mg/dL 06/05/2016 Comp Metabolic Ttr507 B/ C Ratio 18.2 Ratio 06/05/2016 Comp Metabolic Hpy356 CA LCIUM 10.0 mg/dL 06/05/2016 Comp Metabolic Lnf356 AL K PHOS 64 U/L 06/05/2016 Comp Metabolic Ell062 T(SGOT) 20 U/L 06/05/2016 Comp Metabolic Oce574 AL T(SGPT) 29 U/L 06/05/2016 Comp Metabolic Cit386 BI LI T 0.7 mg/dL 06/05/2016 Comp Metabolic Hft032 AL BUMIN 4.8 g/dL 06/05/2016 Comp Metabolic Qor867 TP RO 7.3 g/dL 06/05/2016 Comp Metabolic Ajp282 GL OB 2.5 g/dL 06/05/2016 Comp Metabolic Kau424 A/ G Ratio 1.9 Ratio 06/05/2016 Comp Metabolic Hma189 Os mo 277 mOsmo 06/05/2016 Cbc With [...] 25.2 % 06/05/2016 Cbc With Differential Ord2 [place]% 9.5 % 06/05/2016 Cbc With Differential Ord2 MCH 31.5 pg 06/05/2016 Cbc With Differential Ord2 Eos% 1.7 % 06/05/2016 Cbc With Differential Ord2 MCHC 35.4 pg 06/05/2016 Cbc With Differential Ord2 Baso% 0.3 % 06/05/2016 Cbc With Differential Ord2 PLT 296 K/ul 06/05/2016 Cbc With Differential Ord2 Neut ABS# 4.07 K/ul 06/05/2016 Cbc With Differential Ord2 RDW 12.7 % 06/05/2016 Cbc With Differential Ord2 Lymph ABS# 1.62 K/ul 06/05/2016 Cbc With Differential Ord2 [place] ABS# 0.6 K/ul 06/05/2016 Cbc With Differential Ord2 Eos ABS# 0.1 K/ul 06/05/2016 Cbc With Differential Ord2 Baso ABS# 0.0 K/ul 06/05/2016 Lipid Ord30 CHOL 132 mg/dL 06/05/2016 Lipid Ord30 HDL 44.0 mg/dl 06/05/2016 Lipid Ord30 TRIG 52 mg/dL 06/05/2016 Lipid Ord30 LDL 78 mg/dL 06/05/2016 Lipid Ord30 C/HDL 3.0 Ratio 06/05/2016 Review of Systems System Result Effective Dates Constitutional No recent illness 12/20/2017 Constitutional No [...] No Procedures data Vital Signs Date Vital 12/20/2017 Blood Pressure 1: 160/82 Code: 8480-6 BMI: 27.0 Code: 67501-9 Heart Rate 1: 92 bpm Height: 6' SpO2: 97% Weight: 199 lbs 07/23/2017 Blood Pressure 1: 134/84 Code: 8480-6 BMI: 26.9 Code: 50804-9 Heart Rate 1: 68 bpm Height: 6' SpO2: 98% Weight: 198 lbs 8 oz 12/29/2016 Blood Pressure 1: 144/62 Code: 8480-6 BMI: 26.6 Code: 13273-0 Heart Rate 1: 102 bpm Height: 6' SpO2: 98% Weight: 196 lbs 10/27/2016 Blood Pressure 1: 138/88 Code: 8480-6 Blood Pressure 1: 136/70 Code: 8480-6 BMI: 26.6 Code: 46967-7 Heart Rate 1: 72 bpm Height: 6' SpO2: 98% Weight: 196 lbs 09/28/2016 Blood Pressure 1: 164/82 Code: 8480-6 BMI: 27.3 Code: 20645-3 Heart Rate 1: 83 bpm Height: 6' SpO2: 98% Weight: 201 lbs 08/27/2016 Blood Pressure 1: 148/82 Code: 8480-6 06/04/2016 Blood Pressure 1: 156/86 Code: 8480-6 Blood Pressure 2: 148/92 Code: 8480-6 BMI: 28.2 Code: 88264-5 Heart Rate 1: 80 bpm Height: 6' SpO2: 98% Weight: 208 lbs Functional Status No Functional Status data History of Present Illness Symptom Name Status Resu lt Effective Date Notes hypertension Quality sta ble 12/20/2017 None hypertension [...] Encounters Encounter Performer Loca tion Codes Date ([id number]) PREV VISIT E ST AGE 18-39 Diagnosis: Encounter for general adult medical examination with abnormal findings[ICD10: Z00.01] [facility] CPT-4: 97614 12/20/2017 ([id number]) 80206 EST. P ATIENT, LEVEL III Diagnosis: Essential (primary) hypertension[ICD10: I10] [facility] CPT-4: 65647 07/23/2017 ([id number]) 55327 EST. P ATIENT, LEVEL III Diagnosis: Essential (primary) hypertension[ICD10: I10] [facility] CPT-4: 57652 12/29/2016 ([id number]) 26804 EST. P ATIENT, LEVEL III Diagnosis: Essential (primary) hypertension[ICD10: I10] Sujatha Wright MD, [facility] CPT-4: 85422 10/27/2016 ([id number]) 27465 EST. P ATIENT, LEVEL III Diagnosis: Essential (primary) hypertension[ICD10: I10] [facility] CPT-4: 24702 09/28/2016 ([id number]) Miscellaneou s no charge Diagnosis: Elevated blood-pressure reading, without diagnosis of hypertension[ICD10: R03.0] Sujatha Wright MD, [facility] CPT-4: 60802 08/27/2016 OFFICE VISIT, NEW - LEVEL 3 Diagnosis: Elevated blood-pressure reading, without diagnosis of hypertension[ICD10: R03.0] Diagnosis: Exercise induced bronchospasm[ICD10: J45.990] [facility] CPT-4: 18810 06/04/2016 Plan of Care Planned Activity Notes C odes Status Date [facility]ment: [phone] [facility] ([facility] min) Moderate 02/23/2018 Appointment: Sujatha Ventura WPtel: [phone] [phone] [place] (30 min) Complex 02/21/2018 Appointment: Sujatha Ventura WPtel: [phone] [phone] (15 min) Moderate 01/21/2018 Visit Plan: Well [...] above medications. 12/20/2017 Appointment: Sujatha Ventura WPtel: [facility]5 [phone] (30 min) Complex 12/20/2017 Patient Education: [...] at home. 07/23/2017 Appointment: Sujatha Ventura WPtel: [address] [place] [address] (15 min) Moderate 07/23/2017 Patient Education: Patient Medication Summary Completed 07/23/2017 Appointment: Sujatha Ventura WPtel: [phone] (15 min) Moderate 07/22/2017 Visit Plan: Hypertension - well con trolled - continue with current medications, continue with no added salt diet. Pt has been encouraged to exercise daily. The pt has been advised to call the office if there are any acute concerns about change in blood pressure readings at home. 12/29/2016 Appointment: Sujatha Ventura WPtel: [facility]6 [address] (15 min) Moderate 12/29/2016 Patient Education: Patient [...] at home. 10/27/2016 Appointment: Sujatha Ventura WPtel: [facility]5 [phone] (15 min) Moderate 10/27/2016 Patient Education: Patient [...] acute concerns. 09/28/2016 Appointment: Sujatha Ventura WPtel: [facility]5 [phone] (15 min) Moderate 09/28/2016 Patient Education: Patient [...] on use. 06/04/2016 Appointment: Sujatha Ventura WPtel: [phone] [phone] New Patient 06/04/2016 Patient Education: Patient Medication [...] inhaler provided and instructed on use. . Hypertension - wel l controlled - [...]
--- OUTSIDE RECORDS SUMMARY | 2019-07-25 20:40 | XMS REPORT | Continuity of Care Document ---
Author Organization Unknown Address Unknown Phone Unavailable Allergies There is no data. Medications There is no data. Problems Date Dx Coded Attending Type Code Diagnosis Diagnosed By 05/05/2019 W I10 Lisa hanna (primary) hypertension Sujatha Ventura 06/01/2019 W R09.89 Run Sujatha Velasquez 06/01/2019 W R09.89 Run Sujatha Velasquez Procedures There is no data. Results There is no data. Encounters ACCT No. Visit Date/Time Discharge Status Pt. Type Provider Facility Loc./Unit Complaint [id number] 12/24/2016 23:17:08 12/24/2016 23:59:5 9 CLS Outpatient
--- OUTSIDE RECORDS SUMMARY | 2019-07-25 20:40 | XMS REPORT | CCD ---
Author Author Simeon Ventura Organization Nevin Wright MD, [facility] Address [address] [place] [address] Phone Care Team Providers Care Pallet Sorter Name Role Phone PP Unavailable CCM Unavailable Summary Purpose Interface Exchange Insurance Providers Payer name Policy type / Coverage type Covered republican ID Effective Begin Date Effective End Date [facility] [id number] Un known Family history Father Diagnosis Age [...] College Graduate 06/04/[address]: 393835311 Never smoker Quit chewing 6 months ago [...] Stop Date Sta tus Fill Instructions Lexapro 5 mg tablet RxNorm: 134460 1 Tablet(s) PO QPM 01/10/2018 07/08/2018 Active lisinopril 10 mg tablet RxNorm: 767972 1 Tablet(s) PO daily 12/20/2017 09/15/2018 Active Lexapro 5 mg tablet RxNorm: 738073 1 Tablet(s) PO QPM 12/20/2017 12/19/2017 Inactive Lexapro 5 mg tablet RxNorm: 797946 1 Tablet(s) PO QPM 12/20/2017 01/09/2018 Inactive lisinopril 5 mg tablet RxNorm: 606181 1 Tablet(s) PO daily 09/27/2017 12/19/2017 Inactive lisinopril 5 mg tablet RxNorm: 245706 1 Tablet(s) PO daily 01/13/2017 09/26/2017 Inactive lisinopril 5 mg tablet RxNorm: 244146 1 Tablet(s) PO daily 12/29/2016 01/12/2017 Inactive lisinopril 5 mg tablet RxNorm: 939840 1 Tablet(s) PO daily 10/27/2016 12/28/2016 Inactive lisinopril 5 mg tablet RxNorm: 985857 1 Tablet(s) PO daily 09/28/2016 10/26/2016 Inactive ProAir HFA 90 mcg/ac tuation aerosol inhaler RxNorm: 614297 1-2 Puff(s) INH Q4 WI N 06/04/2016 07/03/2016 In active ProAir HFA 90 mcg/ac tuation aerosol inhaler RxNorm: 495493 1-2 Puff(s) INH Q4 WI N 06/04/2016 06/03/2016 In active Medication Administered [...] 16.0 g/dl 12/20/2017 Cbc With Differential Ord2 Neut% 51.8 % 12/20/2017 Cbc With Differential Ord2 HCT 45.8 % 12/20/2017 Cbc With Differential Ord2 MCV 88.8 fl 12/20/2017 Cbc With Differential Ord2 Lymph% 37.1 % 12/20/2017 Cbc With Differential Ord2 MCH 31.0 pg 12/20/2017 Cbc With Differential Ord2 [place]% 9.4 % 12/20/2017 Cbc With Differential Ord2 [...] 1.70 K/ul 12/20/2017 Cbc With Differential Ord2 [place] ABS# 0.4 K/ul 12/20/2017 Cbc With Differential Ord2 Eos ABS# 0.1 K/ul 12/20/2017 Cbc With Differential Ord2 Baso ABS# 0.0 K/ul 12/20/2017 Comp Metabolic Xrk161 NA 139 mEq/L 12/20/2017 Comp Metabolic Kvh161 K 4.0 mEq/L 12/20/2017 Comp Metabolic Isu771 CL 102 mEq/L 12/20/2017 Comp Metabolic Ltt125 CO2 26.0 mEq/L 12/20/2017 Comp Metabolic Hsv097 AN ION GAP 15 12/20/2017 Comp Metabolic Aee859 GL UCOSE 97 mg/dL 12/20/2017 Comp Metabolic Jtw378 Cr eat 0.8 mg/dL 12/20/2017 Comp Metabolic Zyp815 eG FR 122 ml/min/1.73m2 12/06 Comp Metabolic Tne347 BUN 13 mg/dL 12/20/2017 Comp Metabolic Mpk637 B/ C Ratio 16.5 Ratio 12/20/2017 Comp Metabolic Dvr985 CA LCIUM 10.2 mg/dL 12/20/2017 Comp Metabolic Axz542 AL K PHOS 63 U/L 12/20/2017 Comp Metabolic Hae762 T(SGOT) 17 U/L 12/20/2017 Comp Metabolic Pur349 AL T(SGPT) 23 U/L 12/20/2017 Comp Metabolic Ggb806 BI LI T 0.6 mg/dL 12/20/2017 Comp Metabolic Ukl518 AL BUMIN 5.0 g/dL 12/20/2017 Comp Metabolic Pva330 TP RO 7.5 g/dL 12/20/2017 Comp Metabolic Tkp070 GL OB 2.5 g/dL 12/20/2017 Comp Metabolic Lno474 A/ G Ratio 2.0 Ratio 12/20/2017 Comp Metabolic Bka982 Os mo 278 mOsmo 12/20/2017 Tsh Ord6 TSH (3rd IS) 1.52 uIU/mL 12/20/2017 Tsh Ord6 hTSH II 1.07 uIU/mL 06/05/2016 Comp Metabolic Wbz225 NA 139 mEq/L 06/05/2016 Comp Metabolic Qhl575 K 4.1 mEq/L 06/05/2016 Comp Metabolic Siw215 CL 103 mEq/L 06/05/2016 Comp Metabolic Qxd663 CO2 26.0 mEq/L 06/05/2016 Comp Metabolic Qrh527 AN ION GAP 14 06/05/2016 Comp Metabolic Bbq074 GL UCOSE 88 mg/dL 06/05/2016 Comp Metabolic Uwq113 Cr eat 0.8 mg/dL 06/05/2016 Comp Metabolic Hni653 eG FR 127 ml/min/1.73m2 05/08 Comp Metabolic Lec979 BUN 14 mg/dL 06/05/2016 Comp Metabolic Qqc009 B/ C Ratio 18.2 Ratio 06/05/2016 Comp Metabolic Ggo037 CA LCIUM 10.0 mg/dL 06/05/2016 Comp Metabolic Xhi428 AL K PHOS 64 U/L 06/05/2016 Comp Metabolic Bdz838 T(SGOT) 20 U/L 06/05/2016 Comp Metabolic Czb120 AL T(SGPT) 29 U/L 06/05/2016 Comp Metabolic Vno655 BI LI T 0.7 mg/dL 06/05/2016 Comp Metabolic Ccv535 AL BUMIN 4.8 g/dL 06/05/2016 Comp Metabolic Bfn289 TP RO 7.3 g/dL 06/05/2016 Comp Metabolic Ftf377 GL OB 2.5 g/dL 06/05/2016 Comp Metabolic Ver600 A/ G Ratio 1.9 Ratio 06/05/2016 Comp Metabolic Xgo061 Os mo 277 mOsmo 06/05/2016 Cbc With [...] 25.2 % 06/05/2016 Cbc With Differential Ord2 [place]% 9.5 % 06/05/2016 Cbc With Differential Ord2 MCH 31.5 pg 06/05/2016 Cbc With Differential Ord2 MCHC 35.4 pg 06/05/2016 Cbc With Differential Ord2 Eos% 1.7 % 06/05/2016 Cbc With Differential Ord2 Baso% 0.3 % 06/05/2016 Cbc With Differential Ord2 PLT 296 K/ul 06/05/2016 Cbc With Differential Ord2 RDW 12.7 % 06/05/2016 Cbc With Differential Ord2 Neut ABS# 4.07 K/ul 06/05/2016 Cbc With Differential Ord2 Lymph ABS# 1.62 K/ul 06/05/2016 Cbc With Differential Ord2 [place] ABS# 0.6 K/ul 06/05/2016 Cbc With Differential [...] 1: 160/82 Code: 8480-6 BMI: 27.0 Code: 47781-2 Heart Rate 1: 92 bpm Height: 6' SpO2: 97% Weight: 199 lbs 07/23/2017 Blood Pressure 1: 134/84 Code: 8480-6 BMI: 26.9 Code: 37497-2 Heart Rate 1: 68 bpm Height: 6' SpO2: 98% Weight: 198 lbs 8 oz 12/29/2016 Blood Pressure 1: 144/62 Code: 8480-6 BMI: 26.6 Code: 30489-6 Heart Rate 1: 102 bpm Height: 6' SpO2: 98% Weight: 196 lbs 10/27/2016 Blood Pressure 1: 138/88 Code: 8480-6 Blood Pressure 1: 136/70 Code: 8480-6 BMI: 26.6 Code: 43986-0 Heart Rate 1: 72 bpm Height: 6' SpO2: 98% Weight: 196 lbs 09/28/2016 Blood Pressure 1: 164/82 Code: 8480-6 BMI: 27.3 Code: 87446-6 Heart Rate 1: 83 bpm Height: 6' SpO2: 98% Weight: 201 lbs 08/27/2016 Blood Pressure 1: 148/82 Code: 8480-6 06/04/2016 Blood Pressure 1: 156/86 Code: 8480-6 Blood Pressure 2: 148/92 Code: 8480-6 BMI: 28.2 Code: 81518-9 Heart Rate 1: 80 bpm Height: 6' [...] disease 09/28/2016 None cyst Location on the [address] st 06/04/2016 None cyst Location on the [...] Encounters Encounter Performer Loca tion Codes Date ([id number]) PREV VISIT E ST AGE 18-39 Diagnosis: Encounter for general adult medical examination with abnormal findings[ICD10: Z00.01] Sujatha Wright MD, [facility] CPT-4: 80396 12/20/2017 ([id number]) 09594 EST. P ATIENT, LEVEL III Diagnosis: Essential (primary) hypertension[ICD10: I10] Sujatha Wright MD, [facility] CPT-4: 53436 07/23/2017 ([id number]) 98303 EST. P ATIENT, LEVEL III Diagnosis: Essential (primary) hypertension[ICD10: I10] [facility] CPT-4: 52625 12/29/2016 ([id number]) 97721 EST. P ATIENT, LEVEL III Diagnosis: Essential (primary) hypertension[ICD10: I10] Sujatha Wright MD, [facility] CPT-4: 14413 10/27/2016 ([id number]) 34307 EST. P ATIENT, LEVEL III Diagnosis: Essential (primary) hypertension[ICD10: I10] [facility] CPT-4: 82227 09/28/2016 ([id number]) Misteshaou s no charge Diagnosis: Elevated blood-pressure reading, without diagnosis of hypertension[ICD10: R03.0] [facility] CPT-4: 13520 08/27/2016 OFFICE VISIT, NEW - LEVEL 3 Diagnosis: Elevated blood-pressure reading, without diagnosis of hypertension[ICD10: R03.0] Diagnosis: Exercise induced bronchospasm[ICD10: J45.990] Sujatha Wright MD, [facility] CPT-4: 61056 06/04/2016 Plan of Care Planned Activity Notes C odes Status Date Visit Plan: Well Adult - pt was [...] with the above medications. 12/20/2017 Appointment: Sujatha Venturatel: [address] [place], [place] [phone] (30 min) [facility] 12/20/2017 Patient Education: Patient Medication Summary Completed 12/20/2017 Visit Plan: Hypertension - well con trolled - continue with current medications, continue with no added salt diet. Pt has been encouraged to exercise daily. The pt has been advised to call the office if there are any acute concerns about change in blood pressure readings at home. 07/23/2017 Appointment: Sujatha Ventural: [phone] (15 min) Moderate 07/23/2017 Patient Education: Patient Medication Summary Completed 07/23/2017 Appointment: Sujatha Ventura WPtel: [phone] (15 min) Moderate 07/22/2017 Visit Plan: Hypertension - well con trolled - continue with current medications, continue with no added salt diet. Pt has been encouraged to exercise daily. The pt has been advised to call the office if there are any acute concerns about change in blood pressure readings at home. 12/29/2016 Appointment: Sujatha Ventura WPtel: [phone] (15 min) Moderate 12/29/2016 Patient Education: Patient [...] at home. 10/27/2016 Appointment: Sujatha Ventura WPtel: [address] [place], [place] [phone] (15 min) Moderate 10/27/2016 Patient Education: Patient [...] acute concerns. 09/28/2016 Appointment: Sujatha Ventura WPtel: [phone] (15 min) Moderate 09/28/2016 Patient Education: Patient [...] on use. 06/04/2016 Appointment: Sujatha Ventura [facility]Ptel[phone] New Patient 06/04/2016 Patient Education: Patient [...]
== END 2019-07-25 19:59 | disposition home or self-care (01) ==
LOC: ER 18:20
DX: S68.120A Partial traumatic metacarpophalangeal amputation of right index finger, initial encounter (principal); Z23 Encounter for immunization; W31.2XXA Contact with powered woodworking and forming machines, initial encounter; Y92.009 Unspecified place in unspecified non-institutional (private) residence as the place of occurrence of the external cause
CPT/HCPCS: 12042; 36415; 64450; 73140; 80053; 80320; 85025; 85610; 85730; 90715

== ENCOUNTER → 2020-10-16 | Outpatient (CLI) | payer BC ==
[~2020-10-16] MED LIST: ACHD5005 PO; CEPH-507 PO
--- NOTE | 2020-10-16 09:22 | Diagnostic Imaging Report ---
EXAMINATION: Right ankle 3 views HISTORY: RT ANKLE PAIN COMPARISON: None available. FINDINGS: There is soft tissue swelling most pronounced in the lateral malleolus. No fracture is seen. Talar dome is normal. Mortise is intact. Joint spaces are normal. IMPRESSION: 1. Lateral malleolar soft tissue swelling without acute fracture seen. Dictated by: Dictated on workstation # [id number]
== END ==
LOC: RAD 08:25
PROVIDERS: ATTEND Nurse Practitioner Family
DX: M25.471 Effusion, right ankle (principal)
CPT/HCPCS: 73610

== ENCOUNTER → 2022-03-11 | Outpatient (CLI) | payer BC ==
--- NOTE | 2022-03-11 11:11 | Diagnostic Imaging Report ---
PROCEDURE: US Scrotum. TECHNIQUE: Multiple real-time grayscale images were obtained over the scrotum in various projections bilaterally. INDICATION: Vasectomy one year ago and right epididymal cyst. FINDINGS: Right testicle measures 4.8 x 2.4 x 3.0 cm and the left testicle measures 4.4 x 2.2 x 3.1 cm. Both testes demonstrate homogeneous echotexture. No discrete testicular mass is detected. There is blood flow to both testes. Right epididymis does contain small cysts approximately 6 mm in size. Left epididymis is unremarkable. No hydrocele or varicocele is detected. IMPRESSION: 1. No evidence of testicular mass. 2. Small right epididymal head cyst. Dictated by: Dictated on workstation # [id number]
== END ==
LOC: RAD 09:00
PROVIDERS: ATTEND Urology
DX: N50.3 Cyst of epididymis (principal); Z98.52 Vasectomy status
CPT/HCPCS: 76870